=== PATIENT | male | born 1940 | race Caucasian/White ===

== ENCOUNTER 2017-12-01 22:06 | Inpatient (IN) | payer MEDICARE, MEDICAID ==
--- NOTE | 2017-12-01 22:22 | ED Physician Chart ---
ED Chief Complaint/HPI - Patient Information Date Seen:: 12/01/17 Time Seen:: 22:16 Chief Complaint:: Blurry vision History of Present Illness:: 77 yo male who is a resident of independent living, was brought by caregiver to ER for further evaluation of possible giant cell arteritis due to decreased bilateral eye vision per slab worker. The slab worker also noticed left optic nerve edema. The slab worker recommended IV steroid treatment if elevated CRP, ESR and giant cell arteritis were confirmed. ED Review of Systems - Review of Systems General/Constitutional: No fever Skin: Skin lesions Head: No headache Eyes: Other (decreased b/l vision) ENT: Other (decreased hearing) Neck: No neck pain Cardio Vascular: No chest pain Pulmonary: No SOB GI: No nausea, No vomiting Musculoskeletal: No bone or joint pain ED Past Medical History - Past Medical History Past Medical History: DVT/PE, Other (alcoholic cirrhosis, chronic viral hepatitis C, ) Social History: Smoker, No Alcohol, No Drug Use Psychiatricy History: Depression, Dementia, Other (alcoholism, anxiety) Family Medical History - Family Member Mother History Unknown: Yes ED Physical Exam - Physical Examination General/Constitutional: Awake, Alert Head: Atraumatic Eyes: PERRL Other Skin comments:: diffused itchy rashes ENMT: Nasal exam nl Neck: No nuchal rigidity Respiratory: Clear to Auscultation Cardio Vascular: RRR, No murmur, gallop, rubs, NL S1 S2 GI: No tenderness/rebounding/guarding Extremities: normal strength in all extremities Neuro/Psych: No focal deficits ED Assessment - Assessment General Assessment: Decreased bilateral vision To rule out giant cell arteritis Assessment/Comments:: CBC, CMP, CRP, ESR Solu-Medrol Bilateral carotid u/s ED Septic Shock - . Is Septic Shock (SBP<90, OR Lactate>4 mmol\L) present?: No ED Reassessment (Disposition) - Reassessment Reassessment Condition:: Unchanged - Patient Disposition Discharge/Transfer:: Acute Care w/in this hosp Admitting Medical Physician:: Breanne Guillory
[2017-12-01 23:08] LABS: % BASOPHILS 0.7 % (0.0-2.0); % EOSINOPHILS 4.9 % (0.0-5.0); % LYMPHOCYTES 29.5 % (20.0-50.0); % MONOCYTES 6.2 % (2.0-10.0); % NEUTROPHILS 58.7 % (40.0-80.0); BASOPHILE ABSOLUTE 0.1 Th/cumm (0-0.2); EOSINOPHILE ABSOLUTE 0.5 Th/cmm (0.1-0.4); HEMATOCRIT 46.8 % (41.0-60); HEMOGLOBIN 15.7 gm/dL (12-16); LYMPHOCYTE ABSOLUTE 2.8 Th/cmm (1.5-3.0); MEAN CELL VOLUME 90.3 fl (80-99); MEAN CORPUSCULAR HEMOGLOBIN 30.2 pg (27.0-31.0); MEAN CORPUSCULAR HGB CONC 33.4 pg (28.0-36.0); MEAN PLATELET VOLUME 8.8 fl; MONOCYTE ABSOLUTE 0.6 Th/cmm (0.3-1.0); NEUTROPHILE ABSOLUTE 5.4 Th/cmm (1.8-8.0); PLATELET COUNT 179 Th/cmm (150-400); RED BLOOD COUNT 5.18 Mil/cmm (3.80-5.80); RED CELL DISTRIBUTION WIDTH 14.2 % (11.5-20.0); WHITE BLOOD COUNT 9.4 Th/cmm (4.8-10.8)
[2017-12-01 23:30] LABS: ALB/GLOB RATIO 1.6 (1.0-1.8); ALBUMIN 4.6 gm/dL (4.2-5.5); ALKALINE PHOSPHATASE 99 U/L (34-104); ANION GAP 11.1 (7.0-16.0); BILIRUBIN,TOTAL 0.4 mg/dL (0.3-1.0); BUN - UREA NITROGEN 15 mg/dL (7-25); CALCIUM SERUM 9.6 mg/dL (8.6-10.3); CARBON DIOXIDE 25.7 mEq/L (21.0-31.0); CHLORIDE 105 mEq/L (98-107); GLUCOSE 91 mg/dL (70-105); POTASSIUM SERUM 3.8 mEq/L (3.5-5.1); SGOT 17 U/L (13-39); SGPT/ALT 11 U/L (7-52); SODIUM SERUM 138 mEq/L (136-145); TOTAL PROTEIN,SERUM 7.5 gm/dL (6.0-8.3)
[2017-12-01 23:36] LABS: ESR SEDIMENTATION SED RATE 16 mm/hr (0-20)
--- NOTE | 2017-12-02 17:17 | History & Physical ---
ADMIT DATE: CHIEF COMPLAINT: Visual change in left eye. HISTORY OF PRESENT ILLNESS: A 77-year-old male presents after his Brand Activation Manager recommended that he be evaluated for possible need for IV steroids. The patient had an ultrasound, which showed decreased patency of his left temporal artery. He was given steroids and now being admitted for further evaluation and care. The patient is seen in the Emergency Room, is awake and alert, confused and poor historian, but able to make needs known and give some history. The patient apparently sustained a stroke sometime ago and has trouble expressing himself. He gets frustrated when he cannot find the word that he is trying to say. According to the patient, he was having visual disturbance for a couple of months. He went to see his tea taster yesterday who recommended he come to the hospital because of suspicion of temporal arteritis. In the Emergency Room, the patient had ultrasound of his temples as well as his carotids, which showed arthrosclerotic changes as well as possible temporal arteritis stenosis. Possible decreased patency of his temporal arteritis. He was given intramuscular steroids. According to the patient, he has felt much better since he has been in the hospital, has mild headache, but cannot localize it. Denies temporal pain. Denies pain in his eyes. Denies any chest pain or shortness of breath. PAST MEDICAL HISTORY: The patient has history of CVA. Apparently he had craniotomy. He is on seizure medications: Also antidepressants and Benadryl for chronic itchiness. MEDICATIONS: The patient takes Keppra, Lexapro, and Benadryl. ALLERGIES: No known drug allergies. SOCIAL HISTORY: The patient smokes half a pack of cigarettes per day. Denies alcohol or illicit drug use. The patient lives in an assisted living facility. FAMILY HISTORY: Noncontributory. REVIEW OF SYSTEMS: IMMUNOLOGIC: No recurrent infection. CARDIOVASCULAR: No known heart disease or hypertension. GASTROINTESTINAL: No nausea, vomiting or diarrhea. ENDOCRINE: No diabetes or thyroid disorder. NEUROLOGIC: The patient has stroke and seizure. HEMATOLOGIC: No bleeding or clotting disorder. PHYSICAL EXAMINATION: GENERAL: The patient is awake and alert, in no acute distress. VITAL SIGNS: Temperature 98.0, pulse is 73, respiration is 16, blood pressure 129/76. HEENT: Pupils equally round, anicteric sclerae. NECK: Supple, no JVD, mass or bruit. LUNGS: Clear to auscultation. CARDIOVASCULAR: S1, S2 regular rate and rhythm. ABDOMEN: Soft, nontender. Positive bowel sounds. EXTREMITIES: No clubbing, cyanosis or edema. NEUROLOGIC: The patient has vision in both eyes, able to distinguish shapes and letters, able to move all extremities equally. No lateralizing signs. The patient's mental status appears somewhat confused and forgetful, but able to carry a conversation. The patient is also very hard of hearing, which is chronic. LABORATORY DATA: Chemistry is unremarkable. C-reactive protein is slightly elevated at 1.0. CBC is unremarkable. IMPRESSION: 1. Possible left temporal arteritis. 2. Poor vision. 3. Cerebrovascular accident. 4. Seizure disorder. 5. Chronic pruritus. 6. History of depression. PLAN: Admitted to medical floor. We will continue steroids and request Vascular Surgery consult with Dr. Dupree. We will continue patient's usual medications. JOB# [id number]
[2017-12-02] MEDS: methylPREDNISolone SS 40 mg Vial IVP SCH ×2 (17:38→21:59)
[2017-12-02] MEDS ORDERED: D5W w/20 mEq KCL 1,000 ML IV SCH (20:56)
[2017-12-02] MEDS: Aspirin 81mg Chewable Tab PO SCH (21:59)
[2017-12-03] MEDS: methylPREDNISolone SS 40 mg Vial IVP SCH ×3 (05:58→21:22)
[2017-12-03 06:24] LABS: HEMOGLOBIN 13.3 gm/dL (12-16); MEAN CELL VOLUME 90.7 fl (80-99); MEAN CORPUSCULAR HEMOGLOBIN 30.3 pg (27.0-31.0); MEAN CORPUSCULAR HGB CONC 33.4 pg (28.0-36.0); MEAN PLATELET VOLUME 8.8 fl; RED BLOOD COUNT 4.39 Mil/cmm (3.80-5.80); RED CELL DISTRIBUTION WIDTH 14.3 % (11.5-20.0)
[2017-12-03 06:27] LABS: HEMATOCRIT 39.8 % (41.0-60); WHITE BLOOD COUNT 11.9 Th/cmm (4.8-10.8)
[2017-12-03 06:28] LABS: PLATELET COUNT 143 Th/cmm (150-400)
[2017-12-03 07:27] LABS: ALB/GLOB RATIO 1.7 (1.0-1.8); ALBUMIN 3.8 gm/dL (4.2-5.5); ALKALINE PHOSPHATASE 76 U/L (34-104); BILIRUBIN,TOTAL 0.5 mg/dL (0.3-1.0); BUN - UREA NITROGEN 31 mg/dL (7-25); CHLORIDE 106 mEq/L (98-107); CREATININE - SERUM 1.1 mg/dL (0.7-1.3); GLUCOSE 229 mg/dL (70-105); POTASSIUM SERUM 4.2 mEq/L (3.5-5.1); SGOT 13 U/L (13-39); SGPT/ALT 9 U/L (7-52); SODIUM SERUM 136 mEq/L (136-145); TOTAL PROTEIN,SERUM 6.1 gm/dL (6.0-8.3)
[2017-12-03 08:13] LABS: ANION GAP 12.8 (7.0-16.0); CARBON DIOXIDE 21.4 mEq/L (21.0-31.0)
[2017-12-03 08:32] LABS: LYMPHOCYTE 12 % (20-50); MONOCYTE 2 % (2-10); NEUTROPHILS 86 % (40-80); PLATELET ESTIMATE ADEQUATE (NORMAL); TOTAL CELLS COUNTED 100
[2017-12-03] MEDS: Aspirin 81mg Chewable Tab PO SCH (09:19)
--- NOTE | 2017-12-03 10:58 | Diagnostic Imaging Report ---
Exam: Ultrasound examination of the extracranial carotid circulation HISTORY: CVA Findings: Real-time ultrasound examination of the extracranial carotid circulation was performed in multiple planes utilizing color Doppler technique. The study demonstrates atherosclerotic approximation consistent with an calcified plaque arising through the common carotid arteries into the origin internal and external carotid arteries bilaterally without significant stenosis or alteration of flow. Some intimal thickening is noted carotid bilaterally. Antegrade flow is noted the vertebral circulation bilaterally Right internal carotid artery ratio 1.6 Left internal carotid artery ratio 1.6. IMPRESSION No significant stenosis or alteration of flow. Atherosclerotic plaque formation in the origin internal and external carotid arteries with bilateral subintimal calcification and thickening of the cord bulbs bilaterally.
--- NOTE | 2017-12-03 13:57 | General Progress Note ---
Subjective - Review of Systems Service Date: 12/03/17 Subjective: denies change in vision denies SIMMONS c/o anxiety, irritable Objective - Results Result Diagrams: 12/03/17 06:05 12/03/17 06:05 Recent Labs: Laboratory Last Values WBC 11.9 Th/cmm (4.8-10.8) H D 12/03/17 06:05 RBC 4.39 Mil/cmm (3.80-5.80) 12/03/17 06:05 Hgb 13.3 gm/dL (12-16) 12/03/17 06:05 Hct 39.8 % (41.0-60) L D 12/03/17 06:05 MCV 90.7 fl (80-99) 12/03/17 06:05 MCH 30.3 pg (27.0-31.0) 12/03/17 06:05 MCHC Differential 33.4 pg (28.0-36.0) 12/03/17 06:05 RDW 14.3 % (11.5-20.0) 12/03/17 06:05 Plt Count 143 Th/cmm (150-400) L D 12/03/17 06:05 MPV 8.8 fl 12/03/17 06:05 Neutrophils % 58.7 % (40.0-80.0) 12/01/17 22:58 Lymphocytes % 29.5 % (20.0-50.0) 12/01/17 22:58 Monocytes % 6.2 % (2.0-10.0) 12/01/17 22:58 Eosinophils % 4.9 % (0.0-5.0) 12/01/17 22:58 Basophils % 0.7 % (0.0-2.0) 12/01/17 22:58 Neutrophils (Manual) 86 % (40-80) H 12/03/17 06:05 Lymphocytes 12 % (20-50) L 12/03/17 06:05 Monocytes 2 % (2-10) 12/03/17 06:05 Platelet Estimate ADEQUATE (NORMAL) 12/03/17 06:05 ESR 16 mm/hr (0-20) 12/01/17 22:58 Sodium 136 mEq/L (136-145) 12/03/17 06:05 Potassium 4.2 mEq/L (3.5-5.1) 12/03/17 06:05 Chloride 106 mEq/L (98-107) 12/03/17 06:05 Carbon Dioxide 21.4 mEq/L (21.0-31.0) 12/03/17 06:05 Anion Gap 12.8 (7.0-16.0) 12/03/17 06:05 BUN 31 mg/dL (7-25) H 12/03/17 06:05 Creatinine 1.1 mg/dL (0.7-1.3) 12/03/17 06:05 Est GFR ( Amer) TNP 12/03/17 06:05 Est GFR (Non-Af Amer) TNP 12/03/17 06:05 BUN/Creatinine Ratio 28.2 12/03/17 06:05 Glucose 229 mg/dL (70-105) H 12/03/17 06:05 Calcium 9.0 mg/dL (8.6-10.3) 12/03/17 06:05 Total Bilirubin 0.5 mg/dL (0.3-1.0) 12/03/17 06:05 AST 13 U/L (13-39) 12/03/17 06:05 ALT 9 U/L (7-52) 12/03/17 06:05 Alkaline Phosphatase 76 U/L (34-104) 12/03/17 06:05 C-Reactive Protein 1.0 mg/dL (0.0-0.9) H 12/01/17 22:58 Total Protein 6.1 gm/dL (6.0-8.3) 12/03/17 06:05 Albumin 3.8 gm/dL (4.2-5.5) L 12/03/17 06:05 Globulin 2.3 gm/dL 12/03/17 06:05 Albumin/Globulin Ratio 1.7 (1.0-1.8) 12/03/17 06:05 - Physical Exam Vitals and I&O: Vital Signs Temp 97.6 F 12/03/17 08:12 Pulse 86 12/03/17 08:12 Resp 18 12/03/17 08:12 BP 145/77 12/03/17 08:12 Pulse Ox 92 12/03/17 08:12 Intake & Output 12/02/17 12/03/17 12/03/17 18:59 06:59 18:59 Other: Stool Characteristics Soft Formed Brown Active Medications: Current Medications Alprazolam (Xanax) 0.25 mg PO Q8HR PRN; Protocol PRN Reason: Agitation Stop: 02/01/18 13:36 Aspirin (Aspirin Chewable) 81 mg PO DAILY [facility] Stop: 01/31/18 20:55 Last Admin: 12/03/17 09:19 Dose: 81 mg Diphenhydramine HCl (Benadryl) 25 mg PO TID PRN PRN Reason: Itching Stop: 01/31/18 16:31 Last Admin: 12/02/17 21:58 Dose: 25 mg Escitalopram Oxalate (Lexapro) 5 mg PO DAILY [facility] PRN Reason: Protocol Stop: 02/01/18 08:59 Levetiracetam (Keppra) 500 mg PO BID [facility] Stop: 01/31/18 16:59 Last Admin: 12/03/17 09:19 Dose: 500 mg Methylprednisolone Sodium Succinate (Solu-Medrol) 60 mg IVP Q8HR [facility] Stop: 01/31/18 16:44 Last Admin: 12/03/17 12:43 Dose: 60 mg General: No acute distress HEENT: Atraumatic, PERRLA Neck: Supple, JVD Cardiovascular: Regular rate, Normal S1, Normal S2 Lungs: Clear to auscultation Abdomen: Bowel sounds, Soft Assessment/Plan - Assessment Assessment: Temporal Arteritis CVA Seizure D/O - Plan Plan: psych consult xanax prn cont steroids
[2017-12-03 15:02] LABS: URINE MICROSCOPIC INDICATED? YES; URINE SOURCE MIDSTREAM
[2017-12-03 15:04] LABS: URINE BILIRUBIN NEGATIVE (NEGATIVE); URINE BLOOD NEGATIVE (NEGATIVE); URINE GLUCOSE (UA) >=1000 mg/dL (NEGATIVE); URINE KETONE NEGATIVE (NEGATIVE); URINE LEUKOCYTE ESTERASE NEGATIVE (NEGATIVE); URINE NITRATE NEGATIVE (NEGATIVE); URINE PH 5.5 (4.6 - 8.0); URINE PROTEIN NEGATIVE (NEGATIVE); URINE UROBILINOGEN 0.2 E.U./dL (0.2 - 1.0)
[2017-12-03 15:05] LABS: URINE CLARITY CLEAR (CLEAR); URINE COLOR YELLOW
[2017-12-03 15:11] LABS: URINE BACTERIA NONE SEEN /hpf (NONE SEEN); URINE EPITHELIAL CELLS NONE SEEN /lpf (FEW); URINE RBC NONE SEEN /hpf (0-5); URINE WBC NONE SEEN /hpf (0-5)
[2017-12-03 18:15] LABS: A1C % 5.9 % (4.0-6.0)
[2017-12-03 19:26] LABS: INR 0.96 (0.5-1.4)
[2017-12-04] MEDS: methylPREDNISolone SS 40 mg Vial IVP SCH (05:45)
[2017-12-04 05:56] LABS: ANION GAP 10.5 (7.0-16.0); BUN - UREA NITROGEN 33 mg/dL (7-25); CALCIUM SERUM 8.7 mg/dL (8.6-10.3); CARBON DIOXIDE 25.9 mEq/L (21.0-31.0); CHLORIDE 106 mEq/L (98-107); GLUCOSE 246 mg/dL (70-105); POTASSIUM SERUM 4.4 mEq/L (3.5-5.1); SODIUM SERUM 138 mEq/L (136-145)
[2017-12-04 07:16] LABS: HEMATOCRIT 39.5 % (41.0-60); HEMOGLOBIN 13.4 gm/dL (12-16); MEAN CELL VOLUME 90.6 fl (80-99); RED BLOOD COUNT 4.37 Mil/cmm (3.80-5.80); WHITE BLOOD COUNT 14.3 Th/cmm (4.8-10.8)
[2017-12-04 07:17] LABS: MEAN CORPUSCULAR HEMOGLOBIN 30.7 pg (27.0-31.0); MEAN CORPUSCULAR HGB CONC 33.9 pg (28.0-36.0); MEAN PLATELET VOLUME 9.2 fl; NEUTROPHILS 88 % (40-80); PLATELET COUNT 154 Th/cmm (150-400); RED CELL DISTRIBUTION WIDTH 14.3 % (11.5-20.0)
[2017-12-04 07:18] LABS: BAND NEUTROPHILE 4 % (0-10); LYMPHOCYTE 6 % (20-50); MONOCYTE 2 % (2-10)
--- NOTE | 2017-12-04 07:49 | Diagnostic Imaging Report ---
CHEST X-RAY: AP view INDICATION: Surgery COMPARISON: None FINDINGS: Chronic lung changes are seen with mild increased bibasilar lung markings. No focal consolidation or effusions. Heart size is normal. Degenerative changes of the spine are noted. Postsurgical changes of upper abdomen are noted. IVC filter is noted. IMPRESSION: Chronic lung changes with increased bibasilar lung markings also likely chronic. No focal consolidation is identified.
[2017-12-04] MEDS: Aspirin 81mg Chewable Tab PO SCH (08:14)
--- NOTE | 2017-12-04 13:49 | Diagnostic Imaging Report ---
CT angiogram of the brain with and without intravenous contrast HISTORY: Blurred vision, headache Total DLP equals 1442 CTDI equals 81.0 Axial sections were obtained from the base of the skull to the vertex. Initial precontrast images were obtained. Subsequent postcontrast images are provided. However, there is no significant opacification of the intracerebral vasculature due to extravasation of contrast. Noncontrast images demonstrate extensive surgical changes about the left temporal region with craniotomy defects. Surgical clip noted within the anterior portion of the left middle cranial fossa. Associated artifact limits evaluation of the adjacent tissues. However, there is extensive encephalomalacia with volume loss presumably related to surgical sequelae. Extensive artifact originates from a metallic density situated over the right occipital region of the skull. Again, this limits evaluation. There is generalized enlargement of the ventricular system along with generalized enlargement of cerebral sulci and subarachnoid cisterns reflecting atrophy. There is pronounced hypodensity throughout the supratentorial and periventricular white matter regions without mass effect. The findings may reflect chronic small vessel ischemic disease. No acute intracerebral hemorrhage. No mass effect or shift of midline structures. No extra-axial masses or abnormal fluid collections. IMPRESSION: 1. Nondiagnostic assessment of the intracerebral vasculature due to extravasation of contrast. 2. Extensive surgical changes along with extensive encephalomalacia throughout the left temporal region. Associated artifact related to a surgical clip within the anterior portion of the left middle cranial fossa and a metallic density over the right occipital region limits evaluation of the brain parenchyma. 3. No acute intracerebral abnormalities 4. Generalized cerebral atrophy 5. Extensive supratentorial periventricular and white matter changes. The findings may be associated with chronic small vessel ischemic disease. If possible comparison with prior cerebral imaging studies would be helpful.
[2017-12-04] MEDS ORDERED: IOHEXOL 350mgI/mL 50mL Bottle IVP ONE (15:45)
[2017-12-04] MEDS ORDERED: IOHEXOL 350mgI/mL 100mL Bottle IVP ONE (15:45)
[2017-12-04] MEDS ORDERED: fentaNYL Citrate 100 mcg/2mL Vial ONE (17:08)
[2017-12-04] MEDS ORDERED: Midazolam 1mg/ml 2 ml vial IV ONE (17:09)
--- NOTE | 2017-12-04 19:20 | Consultation ---
DATE OF CONSULTATION: 12/03/2017 REFERRING PHYSICIAN: Breanne Guillory M.D. REASON FOR CONSULTATION: Visual change in left eye. Thank you for referring this patient to me. HISTORY OF PRESENT ILLNESS: This is a 77-year-old male who has been having visual deficit in the left eye for some time. He is a previous stroke patient. He has no family. He is a very poor historian, but apparently following a call to the nurse who was responsible for his care. He is able to sign his own consent. PHYSICAL EXAMINATION: The patient is awake, seems to be alert, but unable to give meaningful information. He smokes about half pack a day. Examination is otherwise unremarkable of the head and neck area. A CT of the head has been done and this shows a nondiagnostic intracerebral vasculature with extensive surgical changes from previous secondary to encephalomalacia with generalized cerebral atrophy. Ultrasound of the carotid vessels did not show any significant hemodynamic stenosis. PLAN: We will do a temporal artery biopsy per request of the attending physicians. JOB# [id number]
--- NOTE | 2017-12-04 21:56 | Operative Report ---
DATE OF SURGERY: 12/04/2017 PREOPERATIVE DIAGNOSES: 1. Temporal arteritis. 2. Status post cerebrovascular accident and craniotomy. 3. Seizure disorder. POSTOPERATIVE DIAGNOSES: 1. Temporal arteritis. 2. Status post cerebrovascular accident and craniotomy. 3. Seizure disorder. OPERATION DONE: Left temporal artery biopsy. SURGEON: Kadeem Dupree M.D. ANESTHESIA: MAC. ANESTHESIOLOGIST: Jacey ESTIMATED BLOOD LOSS: 2 mL. PROCEDURE: The patient was given IV sedation. The left temporal area was prepped with Betadine and draped in appropriate manner. The palpable temporal artery was identified. Once lidocaine was used to infiltrate, the area identified. An incision was made along the orientation of the vessel and the vessel was easily identified. A 3 mm section was removed for histologic examination. Bleeders were tied and electrocoagulated. The incision was closed with a subcuticular suture of 3-0 Vicryl and the skin was closed with subcuticular suture of 4-0 Vicryl. Dermabond was placed over this. The patient tolerated the procedure well. JOB# [id number]
--- NOTE | 2017-12-05 00:05 | Internal Medicine Prog Note ---
Internal Medicine Subjective - Subjective Service Date: 12/04/17 Patient seen and examined:: with staff Patient is:: awake, verbal, in bed, talking Per staff patient has:: no adverse event Internal Medicine Objective - Results Result Diagrams: 12/04/17 05:10 12/04/17 05:10 Recent Labs: Laboratory Last Values WBC 14.3 Th/cmm (4.8-10.8) H D 12/04/17 05:10 RBC 4.37 Mil/cmm (3.80-5.80) 12/04/17 05:10 Hgb 13.4 gm/dL (12-16) 12/04/17 05:10 Hct 39.5 % (41.0-60) L 12/04/17 05:10 MCV 90.6 fl (80-99) 12/04/17 05:10 MCH 30.7 pg (27.0-31.0) 12/04/17 05:10 MCHC Differential 33.9 pg (28.0-36.0) 12/04/17 05:10 RDW 14.3 % (11.5-20.0) 12/04/17 05:10 Plt Count 154 Th/cmm (150-400) 12/04/17 05:10 MPV 9.2 fl 12/04/17 05:10 Neutrophils % 58.7 % (40.0-80.0) 12/01/17 22:58 Band Neutrophils % 4 % (0-10) 12/04/17 05:10 Lymphocytes % 29.5 % (20.0-50.0) 12/01/17 22:58 Monocytes % 6.2 % (2.0-10.0) 12/01/17 22:58 Eosinophils % 4.9 % (0.0-5.0) 12/01/17 22:58 Basophils % 0.7 % (0.0-2.0) 12/01/17 22:58 Neutrophils (Manual) 88 % (40-80) H 12/04/17 05:10 Lymphocytes 6 % (20-50) L 12/04/17 05:10 Monocytes 2 % (2-10) 12/04/17 05:10 Platelet Estimate ADEQUATE (NORMAL) 12/03/17 06:05 ESR 16 mm/hr (0-20) 12/01/17 22:58 PT 10.0 SECONDS (9.5-11.5) 12/03/17 19:07 INR 0.96 (0.5-1.4) 12/03/17 19:07 PTT (Actin FS) 24.3 SECONDS (26.0-38.0) L 12/03/17 19:07 Sodium 138 mEq/L (136-145) 12/04/17 05:10 Potassium 4.4 mEq/L (3.5-5.1) 12/04/17 05:10 Chloride 106 mEq/L (98-107) 12/04/17 05:10 Carbon Dioxide 25.9 mEq/L (21.0-31.0) 12/04/17 05:10 Anion Gap 10.5 (7.0-16.0) 12/04/17 05:10 BUN 33 mg/dL (7-25) H 12/04/17 05:10 Creatinine 1.0 mg/dL (0.7-1.3) 12/04/17 05:10 Est GFR ( Amer) TNP 12/04/17 05:10 Est GFR (Non-Af Amer) TNP 12/04/17 05:10 BUN/Creatinine Ratio 33.0 12/04/17 05:10 Glucose 246 mg/dL (70-105) H 12/04/17 05:10 Hemoglobin A1c % 5.9 % (4.0-6.0) 12/03/17 06:05 Calcium 8.7 mg/dL (8.6-10.3) 12/04/17 05:10 Total Bilirubin 0.5 mg/dL (0.3-1.0) 12/03/17 06:05 AST 13 U/L (13-39) 12/03/17 06:05 ALT 9 U/L (7-52) 12/03/17 06:05 Alkaline Phosphatase 76 U/L (34-104) 12/03/17 06:05 C-Reactive Protein 1.0 mg/dL (0.0-0.9) H 12/01/17 22:58 Total Protein 6.1 gm/dL (6.0-8.3) 12/03/17 06:05 Albumin 3.8 gm/dL (4.2-5.5) L 12/03/17 06:05 Globulin 2.3 gm/dL 12/03/17 06:05 Albumin/Globulin Ratio 1.7 (1.0-1.8) 12/03/17 06:05 Urine Source MIDSTREAM 12/03/17 14:50 Urine Color YELLOW 12/03/17 14:50 Urine Clarity CLEAR (CLEAR) 12/03/17 14:50 Urine pH 5.5 (4.6 - 8.0) 12/03/17 14:50 Ur Specific [place] 1.020 (1.005-1.030) 12/03/17 14:50 Urine Protein NEGATIVE mg/dL (NEGATIVE) 12/03/17 14:50 Urine Glucose (UA) >=1000 mg/dL (NEGATIVE) H 12/03/17 14:50 Urine Ketones NEGATIVE mg/dL (NEGATIVE) 12/03/17 14:50 Urine Blood NEGATIVE (NEGATIVE) 12/03/17 14:50 Urine Nitrate NEGATIVE (NEGATIVE) 12/03/17 14:50 Urine Bilirubin NEGATIVE (NEGATIVE) 12/03/17 14:50 Urine Urobilinogen 0.2 E.U./dL (0.2 - 1.0) 12/03/17 14:50 Ur Leukocyte Esterase NEGATIVE (NEGATIVE) 12/03/17 14:50 Urine RBC NONE SEEN /hpf (0-5) 12/03/17 14:50 Urine WBC NONE SEEN /hpf (0-5) 12/03/17 14:50 Ur Epithelial Cells NONE SEEN /lpf (FEW) 12/03/17 14:50 Urine Bacteria NONE SEEN /hpf (NONE SEEN) 12/03/17 14:50 - Physical Exam Vitals and I&O: Vital Signs Temp 98.8 F 12/04/17 20:00 Pulse 74 12/04/17 20:00 Resp 20 12/04/17 20:00 BP 123/62 12/04/17 20:00 Pulse Ox 95 12/04/17 20:00 Intake & Output 12/04/17 12/04/17 12/05/17 06:59 18:59 06:59 Intake Total 300 0 Balance 300 0 Weight (lbs) 65.091 kg 65.091 kg Intake: Oral 300 0 Other: # Voids 2 3 # Bowel Movements 0 Stool Characteristics Soft Soft Formed Formed Brown Brown Active Medications: Current Medications Alprazolam (Xanax) 0.25 mg PO Q8HR PRN; Protocol PRN Reason: Agitation Stop: 02/01/18 13:36 Aspirin (Aspirin Chewable) 81 mg PO DAILY [facility] Stop: 01/31/18 20:55 Last Admin: 12/04/17 08:14 Dose: Not Given Diphenhydramine HCl (Benadryl) 25 mg PO TID PRN PRN Reason: Itching Stop: 01/31/18 16:31 Last Admin: 12/04/17 20:44 Dose: 25 mg Escitalopram Oxalate (Lexapro) 5 mg PO DAILY [facility] PRN Reason: Protocol Stop: 02/01/18 08:59 Levetiracetam (Keppra) 500 mg PO BID [facility] Stop: 01/31/18 16:59 Last Admin: 12/04/17 17:05 Dose: Not Given Methylprednisolone Sodium Succinate (Solu-Medrol) 60 mg IVP Q8HR [facility] Stop: 01/31/18 16:44 Last Admin: 12/04/17 20:45 Dose: 60 mg General: alert HEENT: NC/AT, PERRLA, EOMI, anicteric sclerae, throat clear Neck: Supple, No JVD, No thyromegaly, +2 carotid pulse wo bruit, No LAD, + JVD Lungs: CTAB Cardiovascular: RRR, Normal S1, Normal S2, without murmur Abdomen: non-tender, non-distended Extremities: clear Neurological: no change Internal Medicine Assmt/Plan - Assessment Assessment: 1.LEFT SIDE BLURING OF VISION. 2.POSSIBLE ACUTE ARTERITES OF LEFT SIDE AND SP BIOPSY. 3.HISTORY OF CVA. - Plan Plan: CONTINU ON CURRENT MEDICATION AND DIET.
[2017-12-05] MEDS: Aspirin 81mg Chewable Tab PO SCH (09:10)
[2017-12-05] MEDS ORDERED: Escitalopram Oxalate 5 mg Tab PO SCH (13:00)
--- NOTE | 2017-12-05 15:28 | Consultation ---
DATE OF CONSULTATION: 12/05/2017 AGE: 77. SEX: Male. PHYSICIAN: Dr. Guillory. BILL SORTER: Dr. Huggins. TYPE OF THE REPORT: Psychiatric consult. REASON FOR THE CONSULT: Depression. HISTORY OF PRESENT ILLNESS: The patient is a 77-year-old male who was admitted to the hospital because of the need of IV steroids secondary to eye problems. The patient diagnosed with temporal arteritis. He also has history of CVA. The patient has been depressed and has been having difficulty expressing himself. The patient also has been anxious. The patient since had CVA has been having that difficulty. Also, has seizure disorder. The patient still has difficulty expressing himself and slow response secondary to stroke. PAST PSYCHIATRIC HISTORY: The patient has history of depression and is on Lexapro 5 mg every day. PAST MEDICAL HISTORY: The patient has history of a stroke and has temporal arteritis. SOCIAL HISTORY: The patient lives with his . He is somehow poor historian and sometimes he lives in a jail. No known alcohol or street drug use. ALLERGIES: No known allergies. MENTAL STATUS EXAM: The patient appears slightly older than stated age. Skinny. Wears prescription glasses. Face is relatively red. The patient denies hallucinations, delusions or suicide or homicide. The patient is alert and oriented to situation and place. Immediate and recent memory are slightly impaired, but intact remote memory. Fair insight and judgment. ASSESSMENT: PRIMARY DIAGNOSIS: Major depression, severe, recurrent, without psychotic features. TREATMENT PLAN: We will continue Lexapro in a dose of 5 mg everyday and we will adjust the dose. Also, will provide individual psychotherapy as well as supportive therapy. Thanks to Dr. Guillory and we will follow up with you. JOB# [id number]
--- NOTE | 2017-12-05 16:39 | General Progress Note ---
Subjective - Review of Systems Service Date: 12/05/17 Events since last encounter: incision is clean Objective - Results Result Diagrams: 12/04/17 05:10 12/04/17 05:10 Recent Labs: Laboratory Last Values WBC 14.3 Th/cmm (4.8-10.8) H D 12/04/17 05:10 RBC 4.37 Mil/cmm (3.80-5.80) 12/04/17 05:10 Hgb 13.4 gm/dL (12-16) 12/04/17 05:10 Hct 39.5 % (41.0-60) L 12/04/17 05:10 MCV 90.6 fl (80-99) 12/04/17 05:10 MCH 30.7 pg (27.0-31.0) 12/04/17 05:10 MCHC Differential 33.9 pg (28.0-36.0) 12/04/17 05:10 RDW 14.3 % (11.5-20.0) 12/04/17 05:10 Plt Count 154 Th/cmm (150-400) 12/04/17 05:10 MPV 9.2 fl 12/04/17 05:10 Neutrophils % 58.7 % (40.0-80.0) 12/01/17 22:58 Band Neutrophils % 4 % (0-10) 12/04/17 05:10 Lymphocytes % 29.5 % (20.0-50.0) 12/01/17 22:58 Monocytes % 6.2 % (2.0-10.0) 12/01/17 22:58 Eosinophils % 4.9 % (0.0-5.0) 12/01/17 22:58 Basophils % 0.7 % (0.0-2.0) 12/01/17 22:58 Neutrophils (Manual) 88 % (40-80) H 12/04/17 05:10 Lymphocytes 6 % (20-50) L 12/04/17 05:10 Monocytes 2 % (2-10) 12/04/17 05:10 Platelet Estimate ADEQUATE (NORMAL) 12/03/17 06:05 ESR 16 mm/hr (0-20) 12/01/17 22:58 PT 10.0 SECONDS (9.5-11.5) 12/03/17 19:07 INR 0.96 (0.5-1.4) 12/03/17 19:07 PTT (Actin FS) 24.3 SECONDS (26.0-38.0) L 12/03/17 19:07 Sodium 138 mEq/L (136-145) 12/04/17 05:10 Potassium 4.4 mEq/L (3.5-5.1) 12/04/17 05:10 Chloride 106 mEq/L (98-107) 12/04/17 05:10 Carbon Dioxide 25.9 mEq/L (21.0-31.0) 12/04/17 05:10 Anion Gap 10.5 (7.0-16.0) 12/04/17 05:10 BUN 33 mg/dL (7-25) H 12/04/17 05:10 Creatinine 1.0 mg/dL (0.7-1.3) 12/04/17 05:10 Est GFR ( Amer) TNP 12/04/17 05:10 Est GFR (Non-Af Amer) TNP 12/04/17 05:10 BUN/Creatinine Ratio 33.0 12/04/17 05:10 Glucose 246 mg/dL (70-105) H 12/04/17 05:10 Hemoglobin A1c % 5.9 % (4.0-6.0) 12/03/17 06:05 Calcium 8.7 mg/dL (8.6-10.3) 12/04/17 05:10 Total Bilirubin 0.5 mg/dL (0.3-1.0) 12/03/17 06:05 AST 13 U/L (13-39) 12/03/17 06:05 ALT 9 U/L (7-52) 12/03/17 06:05 Alkaline Phosphatase 76 U/L (34-104) 12/03/17 06:05 C-Reactive Protein 1.0 mg/dL (0.0-0.9) H 12/01/17 22:58 Total Protein 6.1 gm/dL (6.0-8.3) 12/03/17 06:05 Albumin 3.8 gm/dL (4.2-5.5) L 12/03/17 06:05 Globulin 2.3 gm/dL 12/03/17 06:05 Albumin/Globulin Ratio 1.7 (1.0-1.8) 12/03/17 06:05 Urine Source MIDSTREAM 12/03/17 14:50 Urine Color YELLOW 12/03/17 14:50 Urine Clarity CLEAR (CLEAR) 12/03/17 14:50 Urine pH 5.5 (4.6 - 8.0) 12/03/17 14:50 Ur Specific [place] 1.020 (1.005-1.030) 12/03/17 14:50 Urine Protein NEGATIVE mg/dL (NEGATIVE) 12/03/17 14:50 Urine Glucose (UA) >=1000 mg/dL (NEGATIVE) H 12/03/17 14:50 Urine Ketones NEGATIVE mg/dL (NEGATIVE) 12/03/17 14:50 Urine Blood NEGATIVE (NEGATIVE) 12/03/17 14:50 Urine Nitrate NEGATIVE (NEGATIVE) 12/03/17 14:50 Urine Bilirubin NEGATIVE (NEGATIVE) 12/03/17 14:50 Urine Urobilinogen 0.2 E.U./dL (0.2 - 1.0) 12/03/17 14:50 Ur Leukocyte Esterase NEGATIVE (NEGATIVE) 12/03/17 14:50 Urine RBC NONE SEEN /hpf (0-5) 12/03/17 14:50 Urine WBC NONE SEEN /hpf (0-5) 12/03/17 14:50 Ur Epithelial Cells NONE SEEN /lpf (FEW) 12/03/17 14:50 Urine Bacteria NONE SEEN /hpf (NONE SEEN) 12/03/17 14:50 Levetiracetam 12.7 ug/mL (10.0-40.0) 12/02/17 17:38 - Physical Exam Vitals and I&O: Vital Signs Temp 98.0 F 12/05/17 16:00 Pulse 71 12/05/17 16:00 Resp 18 12/05/17 16:00 BP 153/81 12/05/17 16:00 Pulse Ox 93 12/05/17 16:00 Intake & Output 12/04/17 12/05/17 12/05/17 18:59 06:59 18:59 Intake Total 0 400 Balance 0 400 Weight (lbs) 65.091 kg 64.864 kg Intake: Oral 0 400 Other: # Voids 3 3 # Bowel Movements 0 0 Stool Characteristics Soft Soft Formed Formed Brown Brown Active Medications: Current Medications Alprazolam (Xanax) 0.25 mg PO Q8HR PRN; Protocol PRN Reason: Agitation Stop: 02/03/18 12:22 Aspirin (Aspirin Chewable) 81 mg PO DAILY [facility] Stop: 01/31/18 20:55 Last Admin: 12/05/17 09:10 Dose: 81 mg Diphenhydramine HCl (Benadryl) 25 mg PO TID PRN PRN Reason: Itching Stop: 01/31/18 16:31 Last Admin: 12/04/17 20:44 Dose: 25 mg Escitalopram Oxalate (Lexapro) 5 mg PO DAILY [facility] PRN Reason: Protocol Stop: 02/03/18 12:59 Last Admin: 12/05/17 12:37 Dose: 5 mg Levetiracetam (Keppra) 500 mg PO BID [facility] Stop: 01/31/18 16:59 Last Admin: 12/05/17 09:10 Dose: 500 mg Methylprednisolone Sodium Succinate (Solu-Medrol) 60 mg IVP Q8HR [facility] Stop: 01/31/18 16:44 Last Admin: 12/05/17 12:37 Dose: 60 mg General: No acute distress HEENT: Atraumatic, PERRLA Neck: Supple, JVD Cardiovascular: Regular rate, Normal S1, Normal S2 Lungs: Clear to auscultation Abdomen: Bowel sounds, Soft - Procedures Procedures: Procedures Procedure Code Date EXCISION OF LEFT TEMPORAL ARTERY, OPEN APPROACH, DIAGNOSTIC [id number] 12/01/17 TEMPORAL ARTERY PROCEDURE 51601 12/01/17
--- NOTE | 2017-12-05 20:07 | Internal Medicine Prog Note ---
Internal Medicine Subjective - Subjective Service Date: 12/05/17 Patient seen and examined:: with staff (HE FEELS BETTER) Patient is:: awake, verbal, in bed, talking Per staff patient has:: no adverse event Internal Medicine Objective - Results Result Diagrams: 12/04/17 05:10 12/04/17 05:10 Recent Labs: Laboratory Last Values WBC 14.3 Th/cmm (4.8-10.8) H D 12/04/17 05:10 RBC 4.37 Mil/cmm (3.80-5.80) 12/04/17 05:10 Hgb 13.4 gm/dL (12-16) 12/04/17 05:10 Hct 39.5 % (41.0-60) L 12/04/17 05:10 MCV 90.6 fl (80-99) 12/04/17 05:10 MCH 30.7 pg (27.0-31.0) 12/04/17 05:10 MCHC Differential 33.9 pg (28.0-36.0) 12/04/17 05:10 RDW 14.3 % (11.5-20.0) 12/04/17 05:10 Plt Count 154 Th/cmm (150-400) 12/04/17 05:10 MPV 9.2 fl 12/04/17 05:10 Neutrophils % 58.7 % (40.0-80.0) 12/01/17 22:58 Band Neutrophils % 4 % (0-10) 12/04/17 05:10 Lymphocytes % 29.5 % (20.0-50.0) 12/01/17 22:58 Monocytes % 6.2 % (2.0-10.0) 12/01/17 22:58 Eosinophils % 4.9 % (0.0-5.0) 12/01/17 22:58 Basophils % 0.7 % (0.0-2.0) 12/01/17 22:58 Neutrophils (Manual) 88 % (40-80) H 12/04/17 05:10 Lymphocytes 6 % (20-50) L 12/04/17 05:10 Monocytes 2 % (2-10) 12/04/17 05:10 Platelet Estimate ADEQUATE (NORMAL) 12/03/17 06:05 ESR 16 mm/hr (0-20) 12/01/17 22:58 PT 10.0 SECONDS (9.5-11.5) 12/03/17 19:07 INR 0.96 (0.5-1.4) 12/03/17 19:07 PTT (Actin FS) 24.3 SECONDS (26.0-38.0) L 12/03/17 19:07 Sodium 138 mEq/L (136-145) 12/04/17 05:10 Potassium 4.4 mEq/L (3.5-5.1) 12/04/17 05:10 Chloride 106 mEq/L (98-107) 12/04/17 05:10 Carbon Dioxide 25.9 mEq/L (21.0-31.0) 12/04/17 05:10 Anion Gap 10.5 (7.0-16.0) 12/04/17 05:10 BUN 33 mg/dL (7-25) H 12/04/17 05:10 Creatinine 1.0 mg/dL (0.7-1.3) 12/04/17 05:10 Est GFR ( Amer) TNP 12/04/17 05:10 Est GFR (Non-Af Amer) TNP 12/04/17 05:10 BUN/Creatinine Ratio 33.0 12/04/17 05:10 Glucose 246 mg/dL (70-105) H 12/04/17 05:10 Hemoglobin A1c % 5.9 % (4.0-6.0) 12/03/17 06:05 Calcium 8.7 mg/dL (8.6-10.3) 12/04/17 05:10 Total Bilirubin 0.5 mg/dL (0.3-1.0) 12/03/17 06:05 AST 13 U/L (13-39) 12/03/17 06:05 ALT 9 U/L (7-52) 12/03/17 06:05 Alkaline Phosphatase 76 U/L (34-104) 12/03/17 06:05 C-Reactive Protein 1.0 mg/dL (0.0-0.9) H 12/01/17 22:58 Total Protein 6.1 gm/dL (6.0-8.3) 12/03/17 06:05 Albumin 3.8 gm/dL (4.2-5.5) L 12/03/17 06:05 Globulin 2.3 gm/dL 12/03/17 06:05 Albumin/Globulin Ratio 1.7 (1.0-1.8) 12/03/17 06:05 Urine Source MIDSTREAM 12/03/17 14:50 Urine Color YELLOW 12/03/17 14:50 Urine Clarity CLEAR (CLEAR) 12/03/17 14:50 Urine pH 5.5 (4.6 - 8.0) 12/03/17 14:50 Ur Specific [place] 1.020 (1.005-1.030) 12/03/17 14:50 Urine Protein NEGATIVE mg/dL (NEGATIVE) 12/03/17 14:50 Urine Glucose (UA) >=1000 mg/dL (NEGATIVE) H 12/03/17 14:50 Urine Ketones NEGATIVE mg/dL (NEGATIVE) 12/03/17 14:50 Urine Blood NEGATIVE (NEGATIVE) 12/03/17 14:50 Urine Nitrate NEGATIVE (NEGATIVE) 12/03/17 14:50 Urine Bilirubin NEGATIVE (NEGATIVE) 12/03/17 14:50 Urine Urobilinogen 0.2 E.U./dL (0.2 - 1.0) 12/03/17 14:50 Ur Leukocyte Esterase NEGATIVE (NEGATIVE) 12/03/17 14:50 Urine RBC NONE SEEN /hpf (0-5) 12/03/17 14:50 Urine WBC NONE SEEN /hpf (0-5) 12/03/17 14:50 Ur Epithelial Cells NONE SEEN /lpf (FEW) 12/03/17 14:50 Urine Bacteria NONE SEEN /hpf (NONE SEEN) 12/03/17 14:50 Levetiracetam 12.7 ug/mL (10.0-40.0) 12/02/17 17:38 - Physical Exam Vitals and I&O: Vital Signs Temp 98.0 F 12/05/17 16:00 Pulse 71 12/05/17 16:00 Resp 18 12/05/17 16:00 BP 153/81 12/05/17 16:00 Pulse Ox 93 12/05/17 16:00 Intake & Output 12/05/17 12/05/17 12/06/17 06:59 18:59 06:59 Intake Total 400 1080 Balance 400 1080 Weight (lbs) 64.864 kg 64.864 kg Intake: Oral 400 1080 Other: # Voids 3 5 # Bowel Movements 0 1 Stool Characteristics Soft Formed Brown Active Medications: Current Medications Alprazolam (Xanax) 0.25 mg PO Q8HR PRN; Protocol PRN Reason: Agitation Stop: 02/03/18 12:22 Aspirin (Aspirin Chewable) 81 mg PO DAILY [facility] Stop: 01/31/18 20:55 Last Admin: 12/05/17 09:10 Dose: 81 mg Diphenhydramine HCl (Benadryl) 25 mg PO TID PRN PRN Reason: Itching Stop: 01/31/18 16:31 Last Admin: 12/04/17 20:44 Dose: 25 mg Escitalopram Oxalate (Lexapro) 5 mg PO DAILY [facility] PRN Reason: Protocol Stop: 02/03/18 12:59 Last Admin: 12/05/17 12:37 Dose: 5 mg Levetiracetam (Keppra) 500 mg PO BID [facility] Stop: 01/31/18 16:59 Last Admin: 12/05/17 16:41 Dose: 500 mg Methylprednisolone Sodium Succinate (Solu-Medrol) 60 mg IVP Q8HR [facility] Stop: 01/31/18 16:44 Last Admin: 12/05/17 12:37 Dose: 60 mg General: alert HEENT: NC/AT, PERRLA, EOMI, anicteric sclerae, throat clear Neck: Supple, No JVD, No thyromegaly, +2 carotid pulse wo bruit, No LAD, + JVD Lungs: CTAB Cardiovascular: RRR, Normal S1, Normal S2, without murmur Abdomen: non-tender, non-distended Extremities: clear Neurological: no change - Procedures Procedures: Procedures Procedure Code Date EXCISION OF LEFT TEMPORAL ARTERY, OPEN APPROACH, DIAGNOSTIC [id number] 12/01/17 TEMPORAL ARTERY PROCEDURE 25735 12/01/17 Internal Medicine Assmt/Plan - Assessment Assessment: 1.LEFT SIDE BLURING OF VISION. 2.POSSIBLE ACUTE ARTERITES OF LEFT SIDE AND SP BIOPSY. 3.HISTORY OF CVA. - Plan Plan: CONTINU ON CURRENT MEDICATION AND DIET.
--- NOTE | 2017-12-06 07:47 | Progress Notes ---
DATE: 12/06/2017 PSYCHIATRIC PROGRESS NOTE SUBJECTIVE: Chart reviewed and the patient interviewed. I also discussed the patient's condition with the staff and reviewed records and labs. The patient still has difficulty expressing himself, which makes him anxious and makes him depressed. The patient also still seems to be in a depressed mood. He also is compliant with taking his medications. On the other hand, the patient is taking Lexapro and no side effects of Lexapro. ASSESSMENT: The patient is still severely anxious and depressed. TREATMENT PLAN: Continue to monitor his behavior and his condition closely. Also, we will increase Lexapro to 10 mg every day and continue to follow up. JOB# [id number]
[2017-12-06] MEDS: Aspirin 81mg Chewable Tab PO SCH (09:00)
--- NOTE | 2017-12-06 14:20 | Pathology Report ---
[id number] Collection Date: 12/04/2017 Surgeon: Dr. Oanh Dupree Specimen Description: Left temporal artery biopsy Gross Description: Received in formalin are two short segments of ling tubular structure measuring 0.2 and 0.3 cm in length with both portions having a diameter of 0.1 cm. Totally submitted in one cassette. Microscopic Description: The histologic sections show a small arterial vessel with complete cross-sections identified. The vessel wall shows no evidence for granulomatous inflammation, and there are no giant cells identified. Diagnosis: Cross-section of small artery showing no significant inflammation, left temporal artery biopsy. Comment: There is no evidence for temporal arteritis on this biopsy specimen. Clinical correlation and follow-up is recommended. [facility]# [id number] VLADISLAV
--- NOTE | 2017-12-06 20:57 | Internal Medicine Prog Note ---
Internal Medicine Subjective - Subjective Service Date: 12/06/17 Patient seen and examined:: with staff (HE FEELS BETTER.) Patient is:: awake, verbal, in bed, talking Per staff patient has:: no adverse event Internal Medicine Objective - Results Result Diagrams: 12/04/17 05:10 12/04/17 05:10 Recent Labs: Laboratory Last Values WBC 14.3 Th/cmm (4.8-10.8) H D 12/04/17 05:10 RBC 4.37 Mil/cmm (3.80-5.80) 12/04/17 05:10 Hgb 13.4 gm/dL (12-16) 12/04/17 05:10 Hct 39.5 % (41.0-60) L 12/04/17 05:10 MCV 90.6 fl (80-99) 12/04/17 05:10 MCH 30.7 pg (27.0-31.0) 12/04/17 05:10 MCHC Differential 33.9 pg (28.0-36.0) 12/04/17 05:10 RDW 14.3 % (11.5-20.0) 12/04/17 05:10 Plt Count 154 Th/cmm (150-400) 12/04/17 05:10 MPV 9.2 fl 12/04/17 05:10 Neutrophils % 58.7 % (40.0-80.0) 12/01/17 22:58 Band Neutrophils % 4 % (0-10) 12/04/17 05:10 Lymphocytes % 29.5 % (20.0-50.0) 12/01/17 22:58 Monocytes % 6.2 % (2.0-10.0) 12/01/17 22:58 Eosinophils % 4.9 % (0.0-5.0) 12/01/17 22:58 Basophils % 0.7 % (0.0-2.0) 12/01/17 22:58 Neutrophils (Manual) 88 % (40-80) H 12/04/17 05:10 Lymphocytes 6 % (20-50) L 12/04/17 05:10 Monocytes 2 % (2-10) 12/04/17 05:10 Platelet Estimate ADEQUATE (NORMAL) 12/03/17 06:05 ESR 16 mm/hr (0-20) 12/01/17 22:58 PT 10.0 SECONDS (9.5-11.5) 12/03/17 19:07 INR 0.96 (0.5-1.4) 12/03/17 19:07 PTT (Actin FS) 24.3 SECONDS (26.0-38.0) L 12/03/17 19:07 Sodium 138 mEq/L (136-145) 12/04/17 05:10 Potassium 4.4 mEq/L (3.5-5.1) 12/04/17 05:10 Chloride 106 mEq/L (98-107) 12/04/17 05:10 Carbon Dioxide 25.9 mEq/L (21.0-31.0) 12/04/17 05:10 Anion Gap 10.5 (7.0-16.0) 12/04/17 05:10 BUN 33 mg/dL (7-25) H 12/04/17 05:10 Creatinine 1.0 mg/dL (0.7-1.3) 12/04/17 05:10 Est GFR ( Amer) TNP 12/04/17 05:10 Est GFR (Non-Af Amer) TNP 12/04/17 05:10 BUN/Creatinine Ratio 33.0 12/04/17 05:10 Glucose 246 mg/dL (70-105) H 12/04/17 05:10 Hemoglobin A1c % 5.9 % (4.0-6.0) 12/03/17 06:05 Calcium 8.7 mg/dL (8.6-10.3) 12/04/17 05:10 Total Bilirubin 0.5 mg/dL (0.3-1.0) 12/03/17 06:05 AST 13 U/L (13-39) 12/03/17 06:05 ALT 9 U/L (7-52) 12/03/17 06:05 Alkaline Phosphatase 76 U/L (34-104) 12/03/17 06:05 C-Reactive Protein 1.0 mg/dL (0.0-0.9) H 12/01/17 22:58 Total Protein 6.1 gm/dL (6.0-8.3) 12/03/17 06:05 Albumin 3.8 gm/dL (4.2-5.5) L 12/03/17 06:05 Globulin 2.3 gm/dL 12/03/17 06:05 Albumin/Globulin Ratio 1.7 (1.0-1.8) 12/03/17 06:05 Urine Source MIDSTREAM 12/03/17 14:50 Urine Color YELLOW 12/03/17 14:50 Urine Clarity CLEAR (CLEAR) 12/03/17 14:50 Urine pH 5.5 (4.6 - 8.0) 12/03/17 14:50 Ur Specific [place] 1.020 (1.005-1.030) 12/03/17 14:50 Urine Protein NEGATIVE mg/dL (NEGATIVE) 12/03/17 14:50 Urine Glucose (UA) >=1000 mg/dL (NEGATIVE) H 12/03/17 14:50 Urine Ketones NEGATIVE mg/dL (NEGATIVE) 12/03/17 14:50 Urine Blood NEGATIVE (NEGATIVE) 12/03/17 14:50 Urine Nitrate NEGATIVE (NEGATIVE) 12/03/17 14:50 Urine Bilirubin NEGATIVE (NEGATIVE) 12/03/17 14:50 Urine Urobilinogen 0.2 E.U./dL (0.2 - 1.0) 12/03/17 14:50 Ur Leukocyte Esterase NEGATIVE (NEGATIVE) 12/03/17 14:50 Urine RBC NONE SEEN /hpf (0-5) 12/03/17 14:50 Urine WBC NONE SEEN /hpf (0-5) 12/03/17 14:50 Ur Epithelial Cells NONE SEEN /lpf (FEW) 12/03/17 14:50 Urine Bacteria NONE SEEN /hpf (NONE SEEN) 12/03/17 14:50 Levetiracetam 12.7 ug/mL (10.0-40.0) 12/02/17 17:38 - Physical Exam Vitals and I&O: Vital Signs Temp 97.7 F 12/06/17 17:29 Pulse 61 12/06/17 17:29 Resp 19 12/06/17 17:29 BP 117/71 12/06/17 17:29 Pulse Ox 93 12/06/17 16:00 Intake & Output 12/06/17 12/06/17 12/07/17 06:59 18:59 06:59 Intake Total 200 1200 Balance 200 1200 Weight (lbs) 64.864 kg 64.864 kg Intake: Oral 200 1200 Other: # Voids 4 5 # Bowel Movements 0 Stool Characteristics Soft Soft Formed Formed Brown Brown Active Medications: Current Medications Alprazolam (Xanax) 0.25 mg PO Q8HR PRN; Protocol PRN Reason: Agitation Stop: 02/03/18 12:22 Last Admin: 12/06/17 19:04 Dose: 0.25 mg Alprazolam (Xanax) 0.25 mg PO ONCE PRN; Protocol PRN Reason: Agitation Stop: 02/04/18 20:38 Aspirin (Aspirin Chewable) 81 mg PO DAILY [facility] Stop: 01/31/18 20:55 Last Admin: 12/06/17 09:00 Dose: 81 mg Diphenhydramine HCl (Benadryl) 25 mg PO TID PRN PRN Reason: Itching Stop: 01/31/18 16:31 Last Admin: 12/05/17 20:59 Dose: 25 mg Escitalopram Oxalate (Lexapro) 10 mg PO DAILY [facility] PRN Reason: Protocol Stop: 02/04/18 06:59 Last Admin: 12/06/17 09:00 Dose: 10 mg Levetiracetam (Keppra) 500 mg PO BID [facility] Stop: 01/31/18 16:59 Last Admin: 12/06/17 17:08 Dose: 500 mg Methylprednisolone Sodium Succinate (Solu-Medrol) 60 mg IVP Q8HR [facility] Stop: 01/31/18 16:44 Last Admin: 12/06/17 13:37 Dose: 60 mg General: alert HEENT: NC/AT, PERRLA, EOMI, anicteric sclerae, throat clear Neck: Supple, No JVD, No thyromegaly, +2 carotid pulse wo bruit, No LAD, + JVD Lungs: CTAB Cardiovascular: RRR, Normal S1, Normal S2, without murmur Abdomen: non-tender, non-distended Extremities: clear Neurological: no change - Procedures Procedures: Procedures Procedure Code Date EXCISION OF LEFT TEMPORAL ARTERY, OPEN APPROACH, DIAGNOSTIC [id number] 12/01/17 TEMPORAL ARTERY PROCEDURE [id number] 12/01/17 Internal Medicine Assmt/Plan - Assessment Assessment: 1.LEFT SIDE BLURING OF VISION. 2.POSSIBLE ACUTE ARTERITES OF LEFT SIDE AND SP BIOPSY. 3.HISTORY OF CVA. - Plan Plan: CONTINU ON CURRENT MEDICATION AND DIET.THE PRELIMINARY BIOPSY FOR LEFT TEMPORAL ARTERY IS NEGATIVE.[facility].
--- NOTE | 2017-12-21 21:23 | Discharge Summary ---
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 2. History of cerebrovascular accident. 3. Seizure disorder. 4. History of depression. REVIEW OF HISTORY: The patient is a 77-year-old male with long history of CVA, admitted to [facility] with blurring of vision of left side, temporal pain. The patient started on steroids. PHYSICAL EXAMINATION: VITAL SIGNS: Temperature 98, heart rate 73. CHEST: Clear to auscultation. ABDOMEN: Soft, bowel sounds positive. EXTREMITIES: No edema. COURSE OF HOSPITALIZATION: During his hospitalization, the patient was seen by Dr. Dupree, vascular surgeon and underwent biopsy of the left temporal artery. The patient tolerated the procedure well. On the 12/05/2017, the patient still has some pain and less blurring of vision. No chest pain, no shortness of breath. Chest clear to auscultation. Abdomen soft, bowel sounds positive. DISPOSITION: On 12/06/2017, the patient was stable clinically. The patient transferred to [facility] to continue his medication and diet. CONDITION ON DISCHARGE: Stable. MEDICATIONS: Follow discharge reconciliation. JOB# [id number]
== END 2017-12-06 21:30 | DRG 516 ==
LOC: ER 22:06 → ERII 23:29 → MSI 12-02 19:13 → TELE 12-02 20:30 → MSI 12-02 20:56
PROVIDERS: ADMIT Family Medicine; ATTEND Family Medicine
PROC: 03BT0ZX Excision of Left Temporal Artery, Open Approach, Diagnostic (ICD-10-PCS; principal; 2017-12-04)
DX: M31.6 Other giant cell arteritis (principal); F33.2 Major depressive disorder, recurrent severe without psychotic features; G93.89 Other specified disorders of brain; F03.90 Unspecified dementia, unspecified severity, without behavioral disturbance, psychotic disturbance, mood disturbance, and anxiety; G40.909 Epilepsy, unspecified, not intractable, without status epilepticus; B18.2 Chronic viral hepatitis C; F17.210 Nicotine dependence, cigarettes, uncomplicated; F41.9 Anxiety disorder, unspecified; L29.8 Other pruritus; K74.60 Unspecified cirrhosis of liver; G31.9 Degenerative disease of nervous system, unspecified; Z86.73 Personal history of transient ischemic attack (TIA), and cerebral infarction without residual deficits; Z86.718 Personal history of other venous thrombosis and embolism
CPT/HCPCS: 36415-UA; 71045-TC; 80048-TC; 80053-TC; 80299-90; 81001-TC; 83036-90; 85007-TC; 85025-TC; 85027-TC; 85610-TC; 85652-TC; 86141-TC; 88304-TC; 93005; 93880-TC; J2001; J2250; J2920; J2930; J3010; J3480; J7040; Q9967; Z7610

== ENCOUNTER 2018-05-27 22:14 | Inpatient (IN) | payer MEDICARE, MEDICAID ==
[2018-05-27 23:18] LABS: % BASOPHILS 0.9 % (0.0-2.0); % EOSINOPHILS 4.4 % (0.0-5.0); % LYMPHOCYTES 27.3 % (20.0-50.0); % MONOCYTES 7.8 % (2.0-10.0); % NEUTROPHILS 59.6 % (40.0-80.0); BASOPHILE ABSOLUTE 0.1 Th/cumm (0-0.2); EOSINOPHILE ABSOLUTE 0.3 Th/cmm (0.1-0.4); HEMATOCRIT 38.9 % (41.0-60); HEMOGLOBIN 13.3 gm/dL (12-16); MEAN CELL VOLUME 92.9 fl (80-99); MEAN CORPUSCULAR HEMOGLOBIN 31.8 pg (27.0-31.0); MEAN CORPUSCULAR HGB CONC 34.2 pg (28.0-36.0); MEAN PLATELET VOLUME 8.6 fl; MONOCYTE ABSOLUTE 0.6 Th/cmm (0.3-1.0); NEUTROPHILE ABSOLUTE 4.5 Th/cmm (1.8-8.0); PLATELET COUNT 146 Th/cmm (150-400); RED BLOOD COUNT 4.19 Mil/cmm (3.80-5.80); RED CELL DISTRIBUTION WIDTH 14.3 % (11.5-20.0); WHITE BLOOD COUNT 7.5 Th/cmm (4.8-10.8)
[2018-05-27 23:28] LABS: ALB/GLOB RATIO 1.9 (1.0-1.8); ALBUMIN 3.8 gm/dL (4.2-5.5); ALKALINE PHOSPHATASE 73 U/L (34-104); ANION GAP 9.7 (7.0-16.0); BILIRUBIN,TOTAL 0.3 mg/dL (0.3-1.0); BUN - UREA NITROGEN 23 mg/dL (7-25); CALCIUM SERUM 8.8 mg/dL (8.6-10.3); CARBON DIOXIDE 23.9 mEq/L (21.0-31.0); CHLORIDE 111 mEq/L (98-107); GLUCOSE 158 mg/dL (70-105); PHOSPHOROUS 2.7 mg/dL (2.5-5.0); POTASSIUM SERUM 3.6 mEq/L (3.5-5.1); SGOT 14 U/L (13-39); SGPT/ALT 11 U/L (7-52); SODIUM SERUM 141 mEq/L (136-145); TOTAL PROTEIN,SERUM 5.8 gm/dL (6.0-8.3)
--- NOTE | 2018-05-27 23:30 | ED Physician Chart ---
ED Chief Complaint/HPI - Patient Information Date Seen:: 05/27/18 Time Seen:: 22:15 Chief Complaint:: cough History of Present Illness:: cough with yellow sputum in a smoker Allergies:: Allergies Allergy/AdvReac Type Severity Reaction Status Date / Time No Known Allergies Allergy Verified 12/01/17 23:07 Vitals:: Vital Signs - 8 hr 05/27/18 22:15 Temp 98.0 F HR 93 RR 18 BP 135/61 O2 Sat % 97 ED Review of Systems - Review of Systems General/Constitutional: Weakness Skin: No skin lesions, No rash, No bruising Head: No headache, No light-headedness Eyes: No loss of vision, No pain, No diplopia ENT: No earache, No nasal drainage, No sore throat, No tinnitus Neck: No neck pain, No swelling, No thyromegaly, No stiffness, No mass noted Cardio Vascular: No chest pain, No palpitations, No PND, No orthopnea, No edema Pulmonary: Cough, Sputum GI: No nausea, No vomiting, No diarrhea, No pain, No melena, No hematochezia, No constipation, No hematemesis G/U: No dysuria, No frequency, No hematuria Musculoskeletal: No bone or joint pain, No back pain, No muscle pain Endocrine: No polyuria, No polydipsia Psychiatric: Prior psych history Hematopoietic: No bruising, No lymphadenopathy Allergic/Immuno: No urticaria, No angioedema Neurological: No syncope, No focal symptoms, No weakness, No paresthesia, No headache, No seizure, No dizziness, No confusion, No vertigo ED Past Medical History - Past Medical History Obtainable: Yes Past Medical History: Other (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 Skin: No rash, No skin lesions Other Skin comments:: poor skin turgor ENMT: External ears, nose nl, Nasal exam nl, Lips, teeth, gums nl Other ENMT comments:: dry mucous membranes. Neck: Nontender, Full ROM w/o pain, No JVD, No nuchal rigidity, No bruit, No mass, No stridor Other Neck comments:: Rhonchi right lower lung base. Other Respiratory comments:: no respiratory distress. RLL rhonchi. Cardio Vascular: RRR, No murmur, gallop, rubs, NL S1 S2 GI: No tenderness/rebounding/guarding, No organomegaly, No hernia, Normal BS's, Nondistended, No mass/bruits, No McBurney tenderness : No CVA tenderness Extremities: No tenderness or effusion, Full ROM, normal strength in all extremities, No edema, Normal digits & nails Neuro/Psych: Alert/oriented, Normal sensory exam, Normal motor strength, Judgement/insight normal, Mood normal, No focal deficits Misc: Normal back, No paraspinal tenderness ED Labs/Radiology/EKG Results - Lab Results Results: Laboratory Tests 05/27/18 23:00 WBC 7.5 RBC 4.19 Hgb 13.3 Hct 38.9 L MCV 92.9 MCH 31.8 H MCHC Differential 34.2 RDW 14.3 Plt Count 146 L MPV 8.6 Neutrophils % 59.6 Lymphocytes % 27.3 Monocytes % 7.8 Eosinophils % 4.4 Basophils % 0.9 ED Assessment - Assessment General Assessment: EKG from 11:39:47 p.m.: normal sinus rhythm, movement artifact. No ischemic changes. CXR: early right lower lobe infiltrate (per my reading) Assessment/Comments:: We started calling Dr. Dorsey at 12:22 a.m. I personally texted Dr. Dorsey at 12:32 a.m. He was called through his exchange on mutliple occasions and never answered us until 1:05 a.m. At that point, we were already talking to Dr. Valente about admitting this patient to his service even though Dr. Dorsey had told the patient to specifically come to the emergency room to be admitted to the hospital. Dr. Dorsey insisted that he received a single page 1 minute prior to calling us at 1:[address] Dorsey was very upset and yelled at me, Dr. Prather. He also hung up the phone on Geoffrey, the nurse in the ER. ED Septic Shock - . Is Septic Shock (SBP<90, OR Lactate>4 mmol\L) present?: No - <6hrs of presentation: Vital Signs: Vital Signs - 8 hr 05/27/18 22:15 Temp 98.0 F HR 93 RR 18 BP 135/61 O2 Sat % 97 ED Reassessment (Disposition) - Reassessment Reassessment Condition:: Improved - Diagnosis Diagnosis:: Pneumonia Dehydration - Patient Disposition Discharge/Transfer:: Acute Care w/in this hosp
[2018-05-27] MEDS ORDERED: cefTRIAXone 1 GM in Sodium Chloride 0.9% 50 ML IV ONE (23:31)
[2018-05-27] MEDS ORDERED: Lactated Ringer 1,000 ML IV ONE (23:33)
[2018-05-27] MEDS ORDERED: Azithromycin 500 MG in Sodium Chloride 0.9% 250 ML IV ONE (23:57)
[2018-05-28] MEDS ORDERED: D5-0.45NS w/20 mEq KCL 1,000 ML IV ONE (02:45)
[2018-05-28] MEDS: D5-0.45NS w/20 mEq KCL 1,000 ML IV SCH ×2 (02:53→16:22)
[2018-05-28 03:59] VITALS: BP 151/68
--- NOTE | 2018-05-28 07:32 | Diagnostic Imaging Report ---
Portable chest x-ray Time: 2305 History: Cough Allowing for portable technique the heart size is normal. No focal pulmonary parenchymal processes. No hilar or mediastinal abnormalities. Impression: No acute abnormalities.
[2018-05-28] MEDS: cefTRIAXone 1 GM in Sodium Chloride 0.9% 50 ML IV SCH (20:05)
[2018-05-28] MEDS: Azithromycin 500 MG in Sodium Chloride 0.9% 250 ML IV SCH (20:50)
[2018-05-28 21:00] LABS: URINE MICROSCOPIC INDICATED? YES; URINE SOURCE CLEAN C
[2018-05-28 21:03] LABS: URINE BILIRUBIN NEGATIVE (NEGATIVE); URINE BLOOD NEGATIVE (NEGATIVE); URINE GLUCOSE (UA) 100 mg/dL (NEGATIVE); URINE KETONE NEGATIVE (NEGATIVE); URINE LEUKOCYTE ESTERASE NEGATIVE (NEGATIVE); URINE NITRATE NEGATIVE (NEGATIVE); URINE PH 5.5 (4.6 - 8.0); URINE PROTEIN NEGATIVE (NEGATIVE); URINE UROBILINOGEN 0.2 E.U./dL (0.2 - 1.0)
[2018-05-28 21:40] LABS: URINE CLARITY CLEAR (CLEAR); URINE COLOR YELLOW
[2018-05-28 21:46] LABS: AMPHETAMINE URINE NEGATIVE (NEGATIVE); BARBITURATES URINE NEGATIVE (NEGATIVE); CANNABINOID THC NEGATIVE (NEGATIVE); COCAINE METABOLITE QUAL URINE NEGATIVE (NEGATIVE); METHADONE URINE NEGATIVE (NEGATIVE); METHAMPHETAMINES QUAL URINE NEGATIVE (NEGATIVE); OPIATES (MORPHINE) QUAL. URINE NEGATIVE (NEGATIVE); PHENCYCLIDINE (PCP) URINE NEGATIVE (NEGATIVE); TRICYCLICS (TCA) QUAL. URINE NEGATIVE (NEGATIVE)
[2018-05-28 21:47] LABS: BENZODIAZEPINES QUAL URINE POSITIVE (NEGATIVE); URINE BACTERIA OCCASIONAL /hpf (NONE SEEN); URINE EPITHELIAL CELLS OCCASIONAL /lpf (FEW); URINE RBC 0-2 /hpf (0-5); URINE WBC 0-2 /hpf (0-5)
--- NOTE | 2018-05-28 23:21 | History & Physical ---
ADMIT DATE: 05/28/2018 CHIEF COMPLAINT: Cough, shortness of breath of a few days' duration. HISTORY OF PRESENT ILLNESS: The patient is a 78-year-old male with long history of COPD, seizure disorder, and dementia; presented to the Emergency Room with cough and shortness of breath. Initial workup sent for pneumonia, admitted to the hospitalist, started IV fluid, antibiotic, breathing treatment. No chest pain, no nausea, no vomiting. PAST MEDICAL HISTORY: Significant for COPD, degenerative joint disease, dementia, and seizure disorder. PAST SURGICAL HISTORY: No recent surgery. ALLERGIES: None. MEDICATIONS: Follow admission reconciliation. SOCIAL HISTORY: Ex-smoker, no alcohol or drug problems. FAMILY HISTORY: Noncontributory. REVIEW OF SYSTEMS: IMMUNOSYSTEM: No history of chronic renal disorder. CARDIOVASCULAR SYSTEM: No coronary artery disease. ENDOCRINE SYSTEM: No diabetes or thyroid problem. GASTROINTESTINAL SYSTEM: ____ upper or lower GI bleed. NEUROLOGICAL SYSTEM: History of seizure disorder. MUSCULOSKELETAL SYSTEM: Degenerative joint disease. RESPIRATORY SYSTEM: COPD, pneumonia. PHYSICAL EXAMINATION: GENERAL: He is awake, not coherent. VITAL SIGNS: Temperature 97.2, heart rate 96, and blood pressure 142/73. HEENT: Normocephalic. Pupils reacting to light and accommodation. Sclerae are clear. NECK: Supple. Negative for lymphadenopathy, JVD, or bruit. CHEST: Entry of air bilateral diminished. HEART: S1, S2 normal. ABDOMEN: Soft, bowel sounds positive. EXTREMITIES: No edema. NEUROLOGIC: He is awake, alert, mildly confused. LABORATORY DATA: White blood 7.5, hemoglobin 13.3, hematocrit 38.9, and platelet 146. Sodium 141, potassium 3.6, BUN is 23, creatinine 1.0, and albumin 1.9. ASSESSMENT: 1. Pneumonia. 2. Chronic obstructive pulmonary disease. 3. Seizure disorder. 4. Dementia. 5. Severe malnutrition. PLAN: The patient in the hospital under Dr. Guillory's service. Start IV fluid, IV antibiotic, breathing treatment. The patient is a full code. JOB# [id number]
[2018-05-29] MEDS: D5-0.45NS w/20 mEq KCL 1,000 ML IV SCH (07:09)
[2018-05-29] MEDS: Aspirin 81mg Chewable Tab PO SCH (08:54)
--- NOTE | 2018-05-29 11:48 | Internal Medicine Prog Note ---
Internal Medicine Subjective - Subjective Service Date: 05/29/18 Patient seen and examined:: with staff Patient is:: awake, in bed, confused Per staff patient has:: no adverse event Internal Medicine Objective - Results Result Diagrams: 05/27/18 23:00 05/27/18 23:00 Recent Labs: Laboratory Last Values WBC 7.5 Th/cmm (4.8-10.8) 05/27/18 23:00 RBC 4.19 Mil/cmm (3.80-5.80) 05/27/18 23:00 Hgb 13.3 gm/dL (12-16) 05/27/18 23:00 Hct 38.9 % (41.0-60) L 05/27/18 23:00 MCV 92.9 fl (80-99) 05/27/18 23:00 MCH 31.8 pg (27.0-31.0) H 05/27/18 23:00 MCHC Differential 34.2 pg (28.0-36.0) 05/27/18 23:00 RDW 14.3 % (11.5-20.0) 05/27/18 23:00 Plt Count 146 Th/cmm (150-400) L 05/27/18 23:00 MPV 8.6 fl 05/27/18 23:00 Neutrophils % 59.6 % (40.0-80.0) 05/27/18 23:00 Lymphocytes % 27.3 % (20.0-50.0) 05/27/18 23:00 Monocytes % 7.8 % (2.0-10.0) 05/27/18 23:00 Eosinophils % 4.4 % (0.0-5.0) 05/27/18 23:00 Basophils % 0.9 % (0.0-2.0) 05/27/18 23:00 Sodium 141 mEq/L (136-145) 05/27/18 23:00 Potassium 3.6 mEq/L (3.5-5.1) 05/27/18 23:00 Chloride 111 mEq/L (98-107) H 05/27/18 23:00 Carbon Dioxide 23.9 mEq/L (21.0-31.0) 05/27/18 23:00 Anion Gap 9.7 (7.0-16.0) 05/27/18 23:00 BUN 23 mg/dL (7-25) 05/27/18 23:00 Creatinine 1.0 mg/dL (0.7-1.3) 05/27/18 23:00 Est GFR ( Amer) TNP 05/27/18 23:00 Est GFR (Non-Af Amer) TNP 05/27/18 23:00 BUN/Creatinine Ratio 23.0 05/27/18 23:00 Glucose 158 mg/dL (70-105) H 05/27/18 23:00 Whole Bld Lactic Acid 1.49 mmol/L (0.60-1.99) 05/27/18 23:00 Calcium 8.8 mg/dL (8.6-10.3) 05/27/18 23:00 Phosphorus 2.7 mg/dL (2.5-5.0) 05/27/18 23:00 Magnesium 2.0 mg/dL (1.9-2.7) 05/27/18 23:00 Total Bilirubin 0.3 mg/dL (0.3-1.0) 05/27/18 23:00 AST 14 U/L (13-39) 05/27/18 23:00 ALT 11 U/L (7-52) 05/27/18 23:00 Alkaline Phosphatase 73 U/L (34-104) 05/27/18 23:00 Troponin I < 0.01 ng/mL (0.01-0.05) L 05/27/18 23:00 Total Protein 5.8 gm/dL (6.0-8.3) L 05/27/18 23:00 Albumin 3.8 gm/dL (4.2-5.5) L 05/27/18 23:00 Globulin 2.0 gm/dL 05/27/18 23:00 Albumin/Globulin Ratio 1.9 (1.0-1.8) H 05/27/18 23:00 Urine Source CLEAN C 05/28/18 20:50 Urine Color YELLOW 05/28/18 20:50 Urine Clarity CLEAR (CLEAR) 05/28/18 20:50 Urine pH 5.5 (4.6 - 8.0) 05/28/18 20:50 Ur Specific [place] 1.020 (1.005-1.030) 05/28/18 20:50 Urine Protein NEGATIVE mg/dL (NEGATIVE) 05/28/18 20:50 Urine Glucose (UA) 100 mg/dL (NEGATIVE) H 05/28/18 20:50 Urine Ketones NEGATIVE mg/dL (NEGATIVE) 05/28/18 20:50 Urine Blood NEGATIVE (NEGATIVE) 05/28/18 20:50 Urine Nitrate NEGATIVE (NEGATIVE) 05/28/18 20:50 Urine Bilirubin NEGATIVE (NEGATIVE) 05/28/18 20:50 Urine Urobilinogen 0.2 E.U./dL (0.2 - 1.0) 05/28/18 20:50 Ur Leukocyte Esterase NEGATIVE (NEGATIVE) 05/28/18 20:50 Urine RBC 0-2 /hpf (0-5) H 05/28/18 20:50 Urine WBC 0-2 /hpf (0-5) 05/28/18 20:50 Ur Epithelial Cells OCCASIONAL /lpf (FEW) 05/28/18 20:50 Urine Bacteria OCCASIONAL /hpf (NONE SEEN) 05/28/18 20:50 Urine Opiates Screen NEGATIVE (NEGATIVE) 05/28/18 20:50 Urine Methadone Screen NEGATIVE (NEGATIVE) 05/28/18 20:50 Ur Barbiturates Screen NEGATIVE (NEGATIVE) 05/28/18 20:50 Ur Tricyclics Screen NEGATIVE (NEGATIVE) 05/28/18 20:50 Ur Phencyclidine Scrn NEGATIVE (NEGATIVE) 05/28/18 20:50 Amphetamines Screen NEGATIVE (NEGATIVE) 05/28/18 20:50 U Methamphetamines Scrn NEGATIVE (NEGATIVE) 05/28/18 20:50 U Benzodiazepines Scrn POSITIVE (NEGATIVE) H 05/28/18 20:50 U Cocaine Metab Screen NEGATIVE (NEGATIVE) 05/28/18 20:50 U Cannabinoids Screen NEGATIVE (NEGATIVE) 05/28/18 20:50 - Physical Exam Vitals and I&O: Vital Signs Temp 98.6 F 05/29/18 04:00 Pulse 69 05/29/18 04:00 Resp 16 05/29/18 04:00 BP 132/58 05/29/18 04:00 Pulse Ox 95 05/29/18 04:00 Intake & Output 05/28/18 05/29/18 05/29/18 18:59 06:59 18:59 Intake Total 1000 1360 Balance 1000 1360 Weight (lbs) 52.617 kg 49.895 kg Intake: Intake, IV Amount 1000 1000 D5-0.45NS w/20 mEq KCL 1, 1000 1000 000 ml @ 75 mls/hr IV . [id number] [facility] Rx#:[id number] Oral 60 Other 300 Other: # Voids 2 # Bowel Movements 1 Weight Source Bedscale Bedscale Active Medications: Current Medications Aspirin (Aspirin Chewable) 81 mg PO DAILY [facility] Stop: 07/28/18 08:59 Last Admin: 05/29/18 08:54 Dose: 81 mg Docusate Sodium (Colace) 100 mg PO DAILY [facility] Stop: 07/28/18 08:59 Last Admin: 05/29/18 08:47 Dose: 100 mg Escitalopram Oxalate (Lexapro) 10 mg PO DAILY [facility]; Protocol Stop: 07/28/18 08:59 Last Admin: 05/29/18 08:47 Dose: 10 mg Azithromycin 500 mg/ Sodium (Chloride) 250 mls @ 250 mls/hr IV [facility] Stop: 07/27/18 20:59 Last Admin: 05/28/18 20:50 Dose: 250 mls/hr Ceftriaxone Sodium 1 gm/ (Sodium Chloride) 50 mls @ 100 mls/hr IV [facility] Stop: 07/27/18 20:59 Last Admin: 05/28/18 20:05 Dose: 100 mls/hr Potassium Chloride/Dextrose/Sod Cl (D5-0.45ns W/20 Meq Kcl) 1,000 mls @ 75 mls/ hr IV .[id number] [facility] Stop: 07/27/18 02:34 Last Admin: 05/29/18 07:09 Dose: 75 mls/hr Levetiracetam (Keppra) 500 mg PO BID [facility] Stop: 07/28/18 08:59 Last Admin: 05/29/18 08:46 Dose: 500 mg General: demented HEENT: NC/AT, PERRLA, EOMI, anicteric sclerae, throat clear Neck: Supple, No JVD, No thyromegaly, +2 carotid pulse wo bruit, No LAD Lungs: CTAB Cardiovascular: RRR, Normal S1, Normal S2, without murmur Abdomen: soft, non-tender, non-distended Extremities: clear Neurological: no change, alert - Procedures Procedures: Procedures Procedure Code Date EXCISION OF LEFT TEMPORAL ARTERY, OPEN APPROACH, DIAGNOSTIC [id number] 12/01/17 TEMPORAL ARTERY PROCEDURE 21466 12/01/17 Internal Medicine Assmt/Plan - Assessment Assessment: 1.PNEUMONIA. 2.COPD. 3.SEIZURE. 4.DEMENTIA. - Plan Plan: CONTINUE ON CURRENT MEDICATION AND DIET.
[2018-05-29] MEDS: Azithromycin 500 MG in Sodium Chloride 0.9% 250 ML IV SCH (21:38)
[2018-05-29] MEDS: cefTRIAXone 1 GM in Sodium Chloride 0.9% 50 ML IV SCH (21:39)
[2018-05-30] MEDS: D5-0.45NS w/20 mEq KCL 1,000 ML IV SCH (05:17)
[2018-05-30] MEDS: Aspirin 81mg Chewable Tab PO SCH (09:06)
[2018-05-30] MEDS: Azithromycin 500 MG in Sodium Chloride 0.9% 250 ML IV SCH (22:15)
[2018-05-30] MEDS: cefTRIAXone 1 GM in Sodium Chloride 0.9% 50 ML IV SCH (23:18)
--- NOTE | 2018-05-30 23:19 | Internal Medicine Prog Note ---
Internal Medicine Subjective - Subjective Service Date: 05/30/18 Patient seen and examined:: with staff (HE FEELS WELL) Patient is:: awake, in bed, confused Per staff patient has:: no adverse event Internal Medicine Objective - Results Result Diagrams: 05/27/18 23:00 05/27/18 23:00 Recent Labs: Laboratory Last Values WBC 7.5 Th/cmm (4.8-10.8) 05/27/18 23:00 RBC 4.19 Mil/cmm (3.80-5.80) 05/27/18 23:00 Hgb 13.3 gm/dL (12-16) 05/27/18 23:00 Hct 38.9 % (41.0-60) L 05/27/18 23:00 MCV 92.9 fl (80-99) 05/27/18 23:00 MCH 31.8 pg (27.0-31.0) H 05/27/18 23:00 MCHC Differential 34.2 pg (28.0-36.0) 05/27/18 23:00 RDW 14.3 % (11.5-20.0) 05/27/18 23:00 Plt Count 146 Th/cmm (150-400) L 05/27/18 23:00 MPV 8.6 fl 05/27/18 23:00 Neutrophils % 59.6 % (40.0-80.0) 05/27/18 23:00 Lymphocytes % 27.3 % (20.0-50.0) 05/27/18 23:00 Monocytes % 7.8 % (2.0-10.0) 05/27/18 23:00 Eosinophils % 4.4 % (0.0-5.0) 05/27/18 23:00 Basophils % 0.9 % (0.0-2.0) 05/27/18 23:00 Sodium 141 mEq/L (136-145) 05/27/18 23:00 Potassium 3.6 mEq/L (3.5-5.1) 05/27/18 23:00 Chloride 111 mEq/L (98-107) H 05/27/18 23:00 Carbon Dioxide 23.9 mEq/L (21.0-31.0) 05/27/18 23:00 Anion Gap 9.7 (7.0-16.0) 05/27/18 23:00 BUN 23 mg/dL (7-25) 05/27/18 23:00 Creatinine 1.0 mg/dL (0.7-1.3) 05/27/18 23:00 Est GFR ( Amer) TNP 05/27/18 23:00 Est GFR (Non-Af Amer) TNP 05/27/18 23:00 BUN/Creatinine Ratio 23.0 05/27/18 23:00 Glucose 158 mg/dL (70-105) H 05/27/18 23:00 Whole Bld Lactic Acid 1.49 mmol/L (0.60-1.99) 05/27/18 23:00 Calcium 8.8 mg/dL (8.6-10.3) 05/27/18 23:00 Phosphorus 2.7 mg/dL (2.5-5.0) 05/27/18 23:00 Magnesium 2.0 mg/dL (1.9-2.7) 05/27/18 23:00 Total Bilirubin 0.3 mg/dL (0.3-1.0) 05/27/18 23:00 AST 14 U/L (13-39) 05/27/18 23:00 ALT 11 U/L (7-52) 05/27/18 23:00 Alkaline Phosphatase 73 U/L (34-104) 05/27/18 23:00 Troponin I < 0.01 ng/mL (0.01-0.05) L 05/27/18 23:00 Total Protein 5.8 gm/dL (6.0-8.3) L 05/27/18 23:00 Albumin 3.8 gm/dL (4.2-5.5) L 05/27/18 23:00 Globulin 2.0 gm/dL 05/27/18 23:00 Albumin/Globulin Ratio 1.9 (1.0-1.8) H 05/27/18 23:00 Urine Source CLEAN C 05/28/18 20:50 Urine Color YELLOW 05/28/18 20:50 Urine Clarity CLEAR (CLEAR) 05/28/18 20:50 Urine pH 5.5 (4.6 - 8.0) 05/28/18 20:50 Ur Specific [place] 1.020 (1.005-1.030) 05/28/18 20:50 Urine Protein NEGATIVE mg/dL (NEGATIVE) 05/28/18 20:50 Urine Glucose (UA) 100 mg/dL (NEGATIVE) H 05/28/18 20:50 Urine Ketones NEGATIVE mg/dL (NEGATIVE) 05/28/18 20:50 Urine Blood NEGATIVE (NEGATIVE) 05/28/18 20:50 Urine Nitrate NEGATIVE (NEGATIVE) 05/28/18 20:50 Urine Bilirubin NEGATIVE (NEGATIVE) 05/28/18 20:50 Urine Urobilinogen 0.2 E.U./dL (0.2 - 1.0) 05/28/18 20:50 Ur Leukocyte Esterase NEGATIVE (NEGATIVE) 05/28/18 20:50 Urine RBC 0-2 /hpf (0-5) H 05/28/18 20:50 Urine WBC 0-2 /hpf (0-5) 05/28/18 20:50 Ur Epithelial Cells OCCASIONAL /lpf (FEW) 05/28/18 20:50 Urine Bacteria OCCASIONAL /hpf (NONE SEEN) 05/28/18 20:50 Urine Opiates Screen NEGATIVE (NEGATIVE) 05/28/18 20:50 Urine Methadone Screen NEGATIVE (NEGATIVE) 05/28/18 20:50 Ur Barbiturates Screen NEGATIVE (NEGATIVE) 05/28/18 20:50 Ur Tricyclics Screen NEGATIVE (NEGATIVE) 05/28/18 20:50 Ur Phencyclidine Scrn NEGATIVE (NEGATIVE) 05/28/18 20:50 Amphetamines Screen NEGATIVE (NEGATIVE) 05/28/18 20:50 U Methamphetamines Scrn NEGATIVE (NEGATIVE) 05/28/18 20:50 U Benzodiazepines Scrn POSITIVE (NEGATIVE) H 05/28/18 20:50 U Cocaine Metab Screen NEGATIVE (NEGATIVE) 05/28/18 20:50 U Cannabinoids Screen NEGATIVE (NEGATIVE) 05/28/18 20:50 - Physical Exam Vitals and I&O: Vital Signs Temp 98.7 F 05/30/18 16:52 Pulse 63 05/30/18 16:52 Resp 18 05/30/18 16:52 BP 152/80 05/30/18 16:52 Pulse Ox 94 05/30/18 16:52 Intake & Output 05/30/18 05/30/18 05/31/18 06:59 18:59 06:59 Intake Total 1250 900 Balance 1250 900 Weight (lbs) 49.895 kg Intake: Intake, IV Amount 1250 Azithromycin 500 mg In 250 Sodium Chloride 0.9% 250 ml @ 250 mls/hr IV [facility] Rx#:[id number] D5-0.45NS w/20 mEq KCL 1, 1000 000 ml @ 75 mls/hr IV . [id number] [facility] Rx#:[id number] Oral 900 Other: # Voids 4 # Bowel Movements 1 Weight Source Bedscale Active Medications: Current Medications Aspirin (Aspirin Chewable) 81 mg PO DAILY [facility] Stop: 07/28/18 08:59 Last Admin: 05/30/18 09:06 Dose: 81 mg Docusate Sodium (Colace) 100 mg PO DAILY [facility] Stop: 07/28/18 08:59 Last Admin: 05/30/18 09:06 Dose: 100 mg Escitalopram Oxalate (Lexapro) 10 mg PO DAILY [facility]; Protocol Stop: 07/28/18 08:59 Last Admin: 05/30/18 09:06 Dose: 10 mg Azithromycin 500 mg/ Sodium (Chloride) 250 mls @ 250 mls/hr IV [facility] Stop: 07/27/18 20:59 Last Admin: 05/30/18 22:15 Dose: 250 mls/hr Ceftriaxone Sodium 1 gm/ (Sodium Chloride) 50 mls @ 100 mls/hr IV [facility] Stop: 07/27/18 20:59 Last Admin: 05/29/18 21:39 Dose: 100 mls/hr Potassium Chloride/Dextrose/Sod Cl (D5-0.45ns W/20 Meq Kcl) 1,000 mls @ 75 mls/ hr IV .[id number] [facility] Stop: 07/27/18 02:34 Last Admin: 05/30/18 05:17 Dose: 75 mls/hr Levetiracetam (Keppra) 500 mg PO BID [facility] Stop: 07/28/18 08:59 Last Admin: 05/30/18 16:29 Dose: 500 mg General: demented HEENT: NC/AT, PERRLA, EOMI, anicteric sclerae, throat clear Neck: Supple, No JVD, No thyromegaly, +2 carotid pulse wo bruit, No LAD Lungs: CTAB Cardiovascular: RRR, Normal S1, Normal S2, without murmur Abdomen: soft, non-tender, non-distended Extremities: clear Neurological: no change, alert - Procedures Procedures: Procedures Procedure Code Date EXCISION OF LEFT TEMPORAL ARTERY, OPEN APPROACH, DIAGNOSTIC [id number] 12/01/17 TEMPORAL ARTERY PROCEDURE [id number] 12/01/17 Internal Medicine Assmt/Plan - Assessment Assessment: 1.PNEUMONIA. 2.COPD. 3.SEIZURE. 4.DEMENTIA. - Plan Plan: CONTINUE ON CURRENT MEDICATION AND DIET.
[2018-05-31] MEDS: D5-0.45NS w/20 mEq KCL 1,000 ML IV SCH (04:52)
[2018-05-31] MEDS: Aspirin 81mg Chewable Tab PO SCH (09:01)
== END 2018-05-31 18:51 | DRG 177 ==
LOC: ER 22:14 → MSI 05-28 01:15
PROVIDERS: ADMIT Family Medicine; ATTEND Family Medicine
DX: J69.0 Pneumonitis due to inhalation of food and vomit (principal); E43 Unspecified severe protein-calorie malnutrition; J44.0 Chronic obstructive pulmonary disease with (acute) lower respiratory infection; Z68.1 Body mass index [BMI] 19.9 or less, adult; I82.503 Chronic embolism and thrombosis of unspecified deep veins of lower extremity, bilateral; G40.909 Epilepsy, unspecified, not intractable, without status epilepticus; F03.90 Unspecified dementia, unspecified severity, without behavioral disturbance, psychotic disturbance, mood disturbance, and anxiety; F17.210 Nicotine dependence, cigarettes, uncomplicated; K74.60 Unspecified cirrhosis of liver; B19.20 Unspecified viral hepatitis C without hepatic coma; E86.0 Dehydration; F41.9 Anxiety disorder, unspecified; M19.90 Unspecified osteoarthritis, unspecified site
CPT/HCPCS: 36415-UA; 71045-TC; 80053-TC; 80299-90; 80307; 81001-TC; 83605; 83735-TC; 84100-TC; 84484-TC; 85025-TC; 90784; 93005; J0456; J0696; Z7610

== ENCOUNTER 2019-06-20 17:55 | Inpatient (IN) | payer MEDICAID, MEDICARE ==
[2019-06-20] MEDS ORDERED: Sodium Chloride 0.9% 1,000 ML IV ONE ×2 (18:10→18:43)
--- NOTE | 2019-06-20 18:14 | ED Physician Chart ---
ED Chief Complaint/HPI - Patient Information Date Seen:: 06/20/19 Time Seen:: 18:00 Chief Complaint:: aggressive behavior History of Present Illness:: Patient stays in a [id number]. He left the facility today and bought alcohol at a supermarket. Apparently he was yelling at others. Patient has been at the [id number] since June 2017. There is a note accompanying the patient stating when medically clear patient to be transferred to [facility]. Apparently at his current [facility] it is felt they cannot provide the supervision which the patient requires. According to the person who brought the patient here he has in the past consumed alcohol at the [facility] but has not gone outside the facility to buy it. Patient currently smokes cigarettes. Allergies:: Allergies Allergy/AdvReac Type Severity Reaction Status Date / Time No Known Allergies Allergy Verified 12/01/17 23:07 Historian:: Patient, Other Review:: Nurse's Note Reviewed, Transfer documents Reviewed ED Review of Systems - Review of Systems General/Constitutional: No fever, No chills, No weight loss, No weakness, No diaphoresis, No edema, No loss of appetite Skin: No skin lesions, No rash, No bruising Head: No headache, No light-headedness Eyes: No loss of vision, No pain, No diplopia ENT: No earache, No nasal drainage, No sore throat, No tinnitus Neck: No neck pain, No swelling, No thyromegaly, No stiffness, No mass noted Cardio Vascular: No chest pain, No palpitations, No PND, No orthopnea, No edema Pulmonary: No SOB, No cough, No sputum, No wheezing GI: No nausea, No vomiting, No diarrhea, No pain, No melena, No hematochezia, No constipation, No hematemesis Musculoskeletal: No bone or joint pain, No back pain, No muscle pain Psychiatric: Prior psych history Hematopoietic: No bruising Allergic/Immuno: No urticaria Neurological: No syncope, No focal symptoms ED Past Medical History - Past Medical History Past Medical History: CHF, Asthma/COPD, Seizures, Arthritis, Dementia, Other ( major depression; anxiety; history of urinary tract infection) Family History: Other (unavailable) Social History: Smoker, Alcohol Surgical History: other (unavailable) Psychiatricy History: Dementia Medication: Reviewed Family Medical History - Family Member Mother History Unknown: Yes Ethnicity: Non- Living Status: Hx Family Cancer: No Hx Family Coronary Artery Disease: No Hx Family Congestive Heart Failure: No Hx Family Hypertension: No Hx Family Stroke: No Hx Family Diabetes: No Hx Family Seizures: No Hx Family Dementia: No Hx Family AIDS: No Hx Family HIV: No Hx Family COPD: No Hx Family Hepatitis: No Hx Family Psychiatric Problems: No Hx Family Tuberculosis: No ED Physical Exam - Physical Examination General/Constitutional: Alert, No distress Other Gen/Cons comments:: Alert and confused; patient does not know the correct year Head: Atraumatic Eyes: Lids, conjuctiva normal, PERRL Other Skin comments:: Skin appears stated vaginal ENMT: External ears, nose nl Other ENMT comments:: Complete upper and lower dentures Neck: No nuchal rigidity Respiratory: Nl effort/Exclusion, Clear to Auscultation Cardio Vascular: RRR, No murmur, gallop, rubs, NL S1 S2 GI: No tenderness/rebounding/guarding, No organomegaly, No hernia, Normal BS's Extremities: Normal digits & nails Neuro/Psych: No focal deficits ED Labs/Radiology/EKG Results - EKG Interpretations Rate & Rhythm: normal sinus rhythm with a rate of 64 [place]: normal Comments:: Poor R-wave progression in leads V1 to V3 ED Assessment - Assessment General Assessment: at 1945 patient felt fine; abdomen was soft and nontender. The etiology of the patient's hypotension upon arrival in the emergency department is uncertain but may be due to dehydration from drinking alcohol and being outside in the warm weather. ED Septic Shock - . Is Septic Shock (SBP<90, OR Lactate>4 mmol\L) present?: No ED Reassessment (Disposition) - Reassessment Reassessment Condition:: Unchanged - Diagnosis Diagnosis:: Altered mental status; episode of hypotension; acute alcohol intoxication - Patient Disposition Admitted to:: Telemetry Spoke to:: Breanne Guillory Admitting Medical Physician:: Breanne Guillory Condition at Disposition:: Stable, Unchanged
[2019-06-20 18:36] LABS: % BASOPHILS 0.4 % (0.0-2.0); % EOSINOPHILS 4.2 % (0.0-5.0); % MONOCYTES 9.1 % (2.0-10.0); % NEUTROPHILS 54.3 % (40.0-80.0); EOSINOPHILE ABSOLUTE 0.3 Th/cmm (0.1-0.4); HEMATOCRIT 35.1 % (41.0-60); HEMOGLOBIN 11.7 gm/dL (12-16); LYMPHOCYTE ABSOLUTE 2.1 Th/cmm (1.5-3.0); MEAN CORPUSCULAR HEMOGLOBIN 30.4 pg (27.0-31.0); MEAN CORPUSCULAR HGB CONC 33.4 pg (28.0-36.0); MONOCYTE ABSOLUTE 0.6 Th/cmm (0.3-1.0); NEUTROPHILE ABSOLUTE 3.5 Th/cmm (1.8-8.0); PLATELET COUNT 156 Th/cmm (150-400); RED BLOOD COUNT 3.86 Mil/cmm (3.80-5.80); RED CELL DISTRIBUTION WIDTH 14.1 % (11.5-20.0); WHITE BLOOD COUNT 6.5 Th/cmm (4.8-10.8)
[2019-06-20 18:53] LABS: ANION GAP 11.7 (7.0-16.0); BUN - UREA NITROGEN 22 mg/dL (7-25); CALCIUM SERUM 7.5 mg/dL (8.6-10.3); CARBON DIOXIDE 23.8 mEq/L (21.0-31.0); CHLORIDE 110 mEq/L (98-107); GLUCOSE 119 mg/dL (70-105); POTASSIUM SERUM 3.5 mEq/L (3.5-5.1); SODIUM SERUM 142 mEq/L (136-145)
[2019-06-20 20:43] LABS: URINE SOURCE CLEAN C
[2019-06-20 20:47] LABS: URINE BILIRUBIN NEGATIVE (NEGATIVE); URINE BLOOD NEGATIVE (NEGATIVE); URINE GLUCOSE (UA) NEGATIVE (NEGATIVE); URINE KETONE NEGATIVE (NEGATIVE); URINE LEUKOCYTE ESTERASE NEGATIVE (NEGATIVE); URINE NITRATE NEGATIVE (NEGATIVE); URINE PROTEIN NEGATIVE (NEGATIVE); URINE UROBILINOGEN 0.2 E.U./dL (0.2 - 1.0)
[2019-06-20 20:50] LABS: URINE CLARITY CLEAR (CLEAR); URINE COLOR YELLOW; URINE MICROSCOPIC INDICATED? YES
[2019-06-20 20:55] LABS: URINE RBC NONE SEEN /hpf (0-5)
[2019-06-20 20:56] LABS: URINE BACTERIA NONE SEEN /hpf (NONE SEEN); URINE EPITHELIAL CELLS NONE SEEN /lpf (FEW); URINE WBC NONE SEEN /hpf (0-5)
[2019-06-20] MEDS ORDERED: Multivitamin Inj 10 mL Vial IV ONE (21:11)
[2019-06-20] MEDS ORDERED: Thiamine 100 mg/mL 2mL Vial ONE (21:11)
[2019-06-20] MEDS ORDERED: Magnesium Sulfate 1 gm/2 mL 2mL Vial IV ONE (21:13)
[2019-06-20] MEDS: Multivitamin Inj 10 ML, Thiamine HCL 100 MG, Magnesium Sulfate 2 GM, Folic Acid 1 MG in... IV SCH (21:20)
--- NOTE | 2019-06-21 08:37 | Diagnostic Imaging Report ---
Portable chest x-ray Time: 1818 History: Shortness of breath COMPARISON: 05/27/2018 Allowing for portable technique the heart size is normal. No focal pulmonary parenchymal processes. No hilar or mediastinal abnormalities. Impression: No acute abnormalities.
[2019-06-21] MEDS ORDERED: VTE Chemical Prophylaxis Screen/Admission MC PRN (17:25)
[2019-06-21] MEDS ORDERED: Magnesium Hydroxide (MOM) 30 mL UDC PO PRN (18:17)
--- NOTE | 2019-06-21 19:15 | History & Physical ---
ADMIT DATE: CHIEF COMPLAINT: Alcohol intoxication. HISTORY OF PRESENT ILLNESS: The patient is a 79-year-old male with long history of benign prostatic hypertrophy, COPD, degenerative joint disease, presented to the Emergency Room with alcohol intoxication, admitted to the hospital, started on banana bag. The patient denies any chest pain, shortness of breath, nausea, vomiting, fever or chills. PAST MEDICAL HISTORY: Significant for COPD, benign prostatic hypertrophy, degenerative joint disease, mild dementia. PAST SURGICAL HISTORY: No recent surgery. ALLERGIES: None. MEDICATIONS: Follow admission reconciliation. SOCIAL HISTORY: Chronic smoker, chronic alcoholic, no drugs. FAMILY HISTORY: Noncontributory. REVIEW OF SYSTEMS: RENAL SYSTEM: No history of chronic renal disorder. CARDIOVASCULAR SYSTEM: No coronary artery disease. ENDOCRINE SYSTEM: No diabetes or thyroid problem. GASTROINTESTINAL SYSTEM: No upper or lower GI bleeding. NEUROLOGICAL SYSTEM: Seizure disorder. SKELETOMUSCULAR SYSTEM: No muscular dystrophy. HEMATOLOGIC SYSTEM: No bleeding tendencies. RESPIRATORY SYSTEM: Has history of COPD. GENITOURINARY: No dysuria or hematuria. PHYSICAL EXAMINATION: GENERAL: He is awake, alert, mildly confused. VITAL SIGNS: Temperature 97.0, heart rate 68, blood pressure 173/73. HEENT: Normocephalic. Pupils are reactive to light and accommodation. Sclerae clear. NECK: Supple. Negative for lymphadenopathy, JVD or bruit. CHEST: Entry of air bilaterally mild diminished. No wheezing. HEART: S1, S2 normal. No gallop rhythm. ABDOMEN: Soft, bowel sounds positive. EXTREMITIES: No edema. NEUROLOGIC: Awake, alert, no focal muscle deficits. LABORATORY DATA: White blood 6.5, hemoglobin 11.7, hematocrit 35.1, platelet is 156. Sodium 142, potassium 3.5, BUN is 22, creatinine 1.0. Alcohol level 104. ASSESSMENT: 1. Acute alcohol intoxication. 2. Chronic obstructive pulmonary disease. 3. Hypertension. 4. Benign prostatic hypertrophy. 5. Mild anemia. 6. Dementia. PLAN: The patient admitted to the hospital under Dr. Guillory's service. Start him on banana bag, regular diet, resume his home medication. Psych evaluation ordered. The patient is a full code. JOB# [id number]
[2019-06-21] MEDS ORDERED: Non-Formulary Item 1 EA (Melatonin [Melatonin] 3 MG) PO SCH (21:00)
[2019-06-21] MEDS: Heparin Sod 5,000Units/ML 5,000 UNITS/ML VIAL SUBQ SCH (21:13)
[2019-06-21] MEDS: Multivitamin Inj 10 ML, Thiamine HCL 100 MG, Magnesium Sulfate 2 GM, Folic Acid 1 MG in... IV SCH (21:16)
[2019-06-22] MEDS ORDERED: Non-Formulary Item 1 EA (Cranberry Fruit Concentrate [Cranberry] 450 MG) PO SCH (09:00)
[2019-06-22] MEDS: Heparin Sod 5,000Units/ML 5,000 UNITS/ML VIAL SUBQ SCH ×2 (09:57→20:30)
[2019-06-22] MEDS ORDERED: Polyvinyl Alcohol Ophth Soln 15 mL Bottle EACH EYE PRN (18:31)
--- NOTE | 2019-06-22 18:31 | Internal Medicine Prog Note ---
Internal Medicine Subjective - Subjective Service Date: 06/22/19 Patient seen and examined:: without staff Patient is:: awake, verbal, ambulating, confused Per staff patient has:: no adverse event Internal Medicine Objective - Results Result Diagrams: 06/20/19 18:25 06/20/19 18:25 Recent Labs: Laboratory Last Values WBC 6.5 Th/cmm (4.8-10.8) 06/20/19 18:25 RBC 3.86 Mil/cmm (3.80-5.80) 06/20/19 18:25 Hgb 11.7 gm/dL (12-16) L 06/20/19 18:25 Hct 35.1 % (41.0-60) L 06/20/19 18:25 MCV 91.0 fl (80-99) 06/20/19 18:25 MCH 30.4 pg (27.0-31.0) 06/20/19 18: MCHC Differential 33.4 pg (28.0-36.0) 06/20/19 18:25 RDW 14.1 % (11.5-20.0) 06/20/19 18:25 Plt Count 156 Th/cmm (150-400) 06/20/19 18:25 MPV 7.3 fl 06/20/19 18:25 Neutrophils % 54.3 % (40.0-80.0) 06/20/19 18:25 Lymphocytes % 32.0 % (20.0-50.0) 06/20/19 18:25 Monocytes % 9.1 % (2.0-10.0) 06/20/19 18:25 Eosinophils % 4.2 % (0.0-5.0) 06/20/19 18:25 Basophils % 0.4 % (0.0-2.0) 06/20/19 18:25 Sodium 142 mEq/L (136-145) 06/20/19 18:25 Potassium 3.5 mEq/L (3.5-5.1) 06/20/19 18:25 Chloride 110 mEq/L (98-107) H 06/20/19 18:25 Carbon Dioxide 23.8 mEq/L (21.0-31.0) 06/20/19 18:25 Anion Gap 11.7 (7.0-16.0) 06/20/19 18:25 BUN 22 mg/dL (7-25) 06/20/19 18:25 Creatinine 1.0 mg/dL (0.7-1.3) 06/20/19 18:25 Est GFR ( Amer) TNP 06/20/19 18:25 Est GFR (Non-Af Amer) TNP 06/20/19 18:25 BUN/Creatinine Ratio 22.0 06/20/19 18:25 Glucose 119 mg/dL (70-105) H 06/20/19 18:25 Calcium 7.5 mg/dL (8.6-10.3) L 06/20/19 18:25 Magnesium 2.0 mg/dL (1.9-2.7) 06/20/19 18:25 Urine Source CLEAN C 06/20/19 20:40 Urine Color YELLOW 06/20/19 20:40 Urine Clarity CLEAR (CLEAR) 06/20/19 20:40 Urine pH 6.0 (4.6 - 8.0) 06/20/19 20:40 Ur Specific [place] 1.025 (1.005-1.030) 06/20/19 20:40 Urine Protein NEGATIVE mg/dL (NEGATIVE) 06/20/19 20:40 Urine Glucose (UA) NEGATIVE mg/dL (NEGATIVE) 06/20/19 20:40 Urine Ketones NEGATIVE mg/dL (NEGATIVE) 06/20/19 20:40 Urine Blood NEGATIVE (NEGATIVE) 06/20/19 20:40 Urine Nitrate NEGATIVE (NEGATIVE) 06/20/19 20:40 Urine Bilirubin NEGATIVE (NEGATIVE) 06/20/19 20:40 Urine Urobilinogen 0.2 E.U./dL (0.2 - 1.0) 06/20/19 20:40 Ur Leukocyte Esterase NEGATIVE (NEGATIVE) 06/20/19 20:40 Urine RBC NONE SEEN /hpf (0-5) 06/20/19 20:40 Urine WBC NONE SEEN /hpf (0-5) 06/20/19 20:40 Ur Epithelial Cells NONE SEEN /lpf (FEW) 06/20/19 20:40 Urine Bacteria NONE SEEN /hpf (NONE SEEN) 06/20/19 20:40 Ethyl Alcohol 104 mg/dL (0-10) H 06/20/19 18:25 - Physical Exam Vitals and I&O: Vital Signs Temp 98.4 F 06/22/19 16:00 Pulse 68 06/22/19 16:00 Resp 17 06/22/19 16:00 BP 175/96 06/22/19 16:00 Pulse Ox 95 06/22/19 16:00 Intake & Output 06/21/19 06/22/19 06/22/19 18:59 06:59 18:59 Intake Total 750 340 850 Output Total 100 Balance 750 240 850 Weight (lbs) 55.565 kg 56.245 kg 55.792 kg Intake: Oral 750 340 850 Output: Urine 100 Other: # Voids 4 4 5 # Bowel Movements 1 0 0 Weight Source Bedscale Bedscale Bedscale Active Medications: Current Medications Acetaminophen (Tylenol) 650 mg PO Q4H PRN PRN Reason: PAIN/FEVER Stop: 08/20/19 20:47 Docusate Sodium (Colace) 100 mg PO BID ONEYDA Stop: 08/21/19 08:59 Last Admin: 06/22/19 17:27 Dose: 100 mg Heparin Sodium (Porcine) (Heparin) 5,000 units SUBQ Q12H ONEYDA Stop: 08/20/19 20:59 Last Admin: 06/22/19 09:57 Dose: 5,000 units Multivitamins/Minerals 10 ml/Thiamine HCl 100 mg/ Magnesium Sulfate 2 gm/ Folic Acid 1 mg / Sodium Chloride 1,015.2 mls @ 100 mls/hr IV Q24H ONEYDA Stop: 08/19/19 20:59 Last Admin: 06/21/19 21:16 Dose: Not Given Magnesium Hydroxide (Milk Of Magnesia) 30 ml PO DAILY PRN PRN Reason: Constipation Stop: 08/20/19 18:16 Miscellaneous (Vte Chemical Prophylaxis Screen/ Admission) 1 ea [facility] PRN PRN PRN Reason: PROTOCOL Stop: 08/20/19 17:24 Tamsulosin HCl (Flomax) 0.4 mg PO HS ONEYDA Stop: 08/20/19 20:59 Last Admin: 06/21/19 21:13 Dose: 0.4 mg Temazepam (Restoril) 15 mg PO HS PRN; Protocol PRN Reason: Insomnia Stop: 08/20/19 21:39 Last Admin: 06/21/19 21:56 Dose: 15 mg General: alert HEENT: NC/AT, PERRLA, EOMI, anicteric sclerae, throat clear Neck: Supple, No JVD, No thyromegaly, +2 carotid pulse wo bruit, No LAD Lungs: CTAB Cardiovascular: RRR, Normal S1, Normal S2, without murmur Abdomen: soft, non-tender, non-distended - Procedures Procedures: Procedures Procedure Code Date EXCISION OF LEFT TEMPORAL ARTERY, OPEN APPROACH, DIAGNOSTIC [id number] 12/01/17 TEMPORAL ARTERY PROCEDURE 78147 12/01/17 Internal Medicine Assmt/Plan - Assessment Assessment: 1.ALCOHOL INTOXICATION. 2.COPD. 3.HTN. 4.DEMENTIA - Plan Plan: CONTINUE ON CURRENT MEDICATION AND DIET.
[2019-06-22] MEDS: Multivitamin Inj 10 ML, Thiamine HCL 100 MG, Magnesium Sulfate 2 GM, Folic Acid 1 MG in... IV SCH (20:29)
[2019-06-23] MEDS: Heparin Sod 5,000Units/ML 5,000 UNITS/ML VIAL SUBQ SCH ×2 (09:47→21:14)
--- NOTE | 2019-06-23 10:43 | Consultation ---
DATE OF CONSULTATION: 06/22/2019 CONSULTING PHYSICIAN: Dr. Zarate. REFERRING PHYSICIAN: Dr. Guillory. CHIEF COMPLAINT: Alcohol intoxication. HISTORY OF PRESENT ILLNESS: A 79-year-old male with history of alcohol, brought in here to the Emergency Room after the patient presented with alcohol intoxication. Today on [id number] evaluation, the patient reports that he has been drinking all his whole life. He reports that he is just anxious and agitated with the withdrawal symptoms right now and just refused at times to be interviewed and prefers to be interviewed at later time. He denies any suicidal or homicidal ideation. Denies any auditory or visual hallucinations. PAST MEDICAL HISTORY: COPD, BPH, DJD. PAST PSYCHIATRIC HISTORY: History of alcohol use and history of dementia. PAST SURGICAL HISTORY: No recent history. ALLERGIES TO MEDICATIONS: NKDA. CURRENT MEDICATIONS: He is on heparin, miscellaneous; Restoril as needed. LEGAL HISTORY: Denied. SOCIAL HISTORY: History of alcohol and drug use is reported. He has been drinking alcohol his whole life and he has been drinking most recently, also reporting alcohol. Denies any illicit drug use. FAMILY PSYCHIATRIC HISTORY: Noncontributory. MENTAL STATUS EXAMINATION: Slightly irritable, anxious, tremors. Denies any auditory or visual hallucinations. Denies any suicidal or homicidal ideation. Assessment of suicidal and homicidal risk is low, no ideation, no plan, no intent, no access to firearms. LABORATORY DATA: Alcohol level is 104. PRIMARY DIAGNOSIS: Alcohol dependence. SECONDARY DIAGNOSIS: Alcohol withdrawal. MEDICAL DIAGNOSES: Includes alcohol intoxication, COPD, hypertension, BPH, mild anemia. ASSESSMENT AND PLAN: The patient is a 79-year-old male who currently presents intoxicated with the alcohol for the primary team. I recommend ____ discrepancy to continue with the [facility] protocol and monitoring for withdrawal symptoms. After the withdrawal symptoms resolve, recommend to reconsult Psychiatry to further assess the patient's mental state, which is at this point being implicated by the patient's intoxicated state. Also, recommend clinical specialist medical device to continue being on board to help the patient transition to a residential treatment center versus sober living versus outpatient treatment in rehab ____ referrals as he would need them after the intoxicated state and withdrawal symptoms had completely ameliorated and improve. In the meantime, we will continue monitoring and follow alongside. I am recommending for the primary psychiatrist's treatment team to continue with the patient's detox protocol. Further assessment psychiatrically to continue assessing the patient's mood as his detox symptoms improve. [facility]# [id number]
--- NOTE | 2019-06-23 18:36 | Internal Medicine Prog Note ---
Internal Medicine Subjective - Subjective Service Date: 06/23/19 Patient seen and examined:: without staff (HE FEELS BETTER) Patient is:: awake, verbal, ambulating, confused Per staff patient has:: no adverse event Internal Medicine Objective - Results Result Diagrams: 06/20/19 18:25 06/20/19 18: Recent Labs: Laboratory Last Values WBC 6.5 Th/cmm (4.8-10.8) 06/20/19 18: RBC 3.86 Mil/cmm (3.80-5.80) 06/20/19 18: Hgb 11.7 gm/dL (12-16) L 06/20/19 18: Hct 35.1 % (41.0-60) L 06/20/19 18: MCV 91.0 fl (80-99) 06/20/19 18: MCH 30.4 pg (27.0-31.0) 06/20/19 18: MCHC Differential 33.4 pg (28.0-36.0) 06/20/19 18: RDW 14.1 % (11.5-20.0) 06/20/19 18: Plt Count 156 Th/cmm (150-400) 06/20/19 18: MPV 7.3 fl 06/20/19 18: Neutrophils % 54.3 % (40.0-80.0) 06/20/19 18: Lymphocytes % 32.0 % (20.0-50.0) 06/20/19 18: Monocytes % 9.1 % (2.0-10.0) 06/20/19 18: Eosinophils % 4.2 % (0.0-5.0) 06/20/19 18: Basophils % 0.4 % (0.0-2.0) 06/20/19 18:25 Sodium 142 mEq/L (136-145) 06/20/19 18:25 Potassium 3.5 mEq/L (3.5-5.1) 06/20/19 18:25 Chloride 110 mEq/L (98-107) H 06/20/19 18:25 Carbon Dioxide 23.8 mEq/L (21.0-31.0) 06/20/19 18:25 Anion Gap 11.7 (7.0-16.0) 06/20/19 18:25 BUN 22 mg/dL (7-25) 06/20/19 18:25 Creatinine 1.0 mg/dL (0.7-1.3) 06/20/19 18:25 Est GFR ( Amer) TNP 06/20/19 18:25 Est GFR (Non-Af Amer) TNP 06/20/19 18:25 BUN/Creatinine Ratio 22.0 06/20/19 18:25 Glucose 119 mg/dL (70-105) H 06/20/19 18:25 Calcium 7.5 mg/dL (8.6-10.3) L 06/20/19 18:25 Magnesium 2.0 mg/dL (1.9-2.7) 06/20/19 18:25 Urine Source CLEAN C 06/20/19 20:40 Urine Color YELLOW 06/20/19 20:40 Urine Clarity CLEAR (CLEAR) 06/20/19 20:40 Urine pH 6.0 (4.6 - 8.0) 06/20/19 20:40 Ur Specific [place] 1.025 (1.005-1.030) 06/20/19 20:40 Urine Protein NEGATIVE mg/dL (NEGATIVE) 06/20/19 20:40 Urine Glucose (UA) NEGATIVE mg/dL (NEGATIVE) 06/20/19 20:40 Urine Ketones NEGATIVE mg/dL (NEGATIVE) 06/20/19 20:40 Urine Blood NEGATIVE (NEGATIVE) 06/20/19 20:40 Urine Nitrate NEGATIVE (NEGATIVE) 06/20/19 20:40 Urine Bilirubin NEGATIVE (NEGATIVE) 06/20/19 20:40 Urine Urobilinogen 0.2 E.U./dL (0.2 - 1.0) 06/20/19 20:40 Ur Leukocyte Esterase NEGATIVE (NEGATIVE) 06/20/19 20:40 Urine RBC NONE SEEN /hpf (0-5) 06/20/19 20:40 Urine WBC NONE SEEN /hpf (0-5) 06/20/19 20:40 Ur Epithelial Cells NONE SEEN /lpf (FEW) 06/20/19 20:40 Urine Bacteria NONE SEEN /hpf (NONE SEEN) 06/20/19 20:40 Ethyl Alcohol 104 mg/dL (0-10) H 06/20/19 18:25 - Physical Exam Vitals and I&O: Vital Signs Temp 99.1 F 06/23/19 16:00 Pulse 77 06/23/19 16:00 Resp 18 06/23/19 17:00 BP 160/68 06/23/19 16:00 Pulse Ox 94 06/23/19 16:00 Intake & Output 06/22/19 06/23/19 06/23/19 18:59 06:59 18:59 Intake Total 850 200 950 Output Total 700 Balance 850 -500 950 Weight (lbs) 55.792 kg 55.248 kg 55.338 kg Intake: Oral 850 200 950 Output: Urine 700 Other: # Voids 5 2 5 # Bowel Movements 0 0 0 Weight Source Bedscale Bedscale Bedscale Active Medications: Current Medications Acetaminophen (Tylenol) 650 mg PO Q4H PRN PRN Reason: PAIN/FEVER Stop: 08/20/19 20:47 Artificial Tears (Artificial Tears Ophth Soln) 1 drop EACH EYE Q6HRT PRN PRN Reason: Dry Eye Stop: 08/21/19 18:30 Docusate Sodium (Colace) 100 mg PO BID ONEYDA Stop: 08/21/19 08:59 Last Admin: 06/23/19 17:29 Dose: 100 mg Heparin Sodium (Porcine) (Heparin) 5,000 units SUBQ Q12H ONEYDA Stop: 08/20/19 20:59 Last Admin: 06/23/19 09:47 Dose: 5,000 units Multivitamins/Minerals 10 ml/Thiamine HCl 100 mg/ Magnesium Sulfate 2 gm/ Folic Acid 1 mg / Sodium Chloride 1,015.2 mls @ 100 mls/hr IV Q24H ONEYDA Stop: 08/19/19 20:59 Last Admin: 06/22/19 20:29 Dose: 100 mls/hr Magnesium Hydroxide (Milk Of Magnesia) 30 ml PO DAILY PRN PRN Reason: Constipation Stop: 08/20/19 18:16 Miscellaneous (Vte Chemical Prophylaxis Screen/ Admission) 1 ea [facility] PRN PRN PRN Reason: PROTOCOL Stop: 08/20/19 17:24 Tamsulosin HCl (Flomax) 0.4 mg PO HS ONEYDA Stop: 08/20/19 20:59 Last Admin: 06/22/19 20:29 Dose: 0.4 mg Temazepam (Restoril) 15 mg PO HS PRN; Protocol PRN Reason: Insomnia Stop: 08/20/19 21:39 Last Admin: 06/22/19 20:29 Dose: 15 mg General: alert HEENT: NC/AT, PERRLA, EOMI, anicteric sclerae, throat clear Neck: Supple, No JVD, No thyromegaly, +2 carotid pulse wo bruit, No LAD Lungs: CTAB Cardiovascular: RRR, Normal S1, Normal S2, without murmur Abdomen: soft, non-tender, non-distended - Procedures Procedures: Procedures Procedure Code Date EXCISION OF LEFT TEMPORAL ARTERY, OPEN APPROACH, DIAGNOSTIC [id number] 12/01/17 TEMPORAL ARTERY PROCEDURE 23061 12/01/17 Internal Medicine Assmt/Plan - Assessment Assessment: 1.ALCOHOL INTOXICATION. 2.COPD. 3.HTN. 4.DEMENTIA - Plan Plan: CONTINUE ON CURRENT MEDICATION AND DIET.
[2019-06-23] MEDS: Multivitamin Inj 10 ML, Thiamine HCL 100 MG, Magnesium Sulfate 2 GM, Folic Acid 1 MG in... IV SCH (21:15)
--- NOTE | 2019-06-23 22:26 | Progress Notes ---
DATE: 06/23/2019 SUBJECTIVE: The patient was seen and evaluated. The patient's chard reviewed. Overnight, nursing staff reported the patient continues to have withdrawal symptoms and continues to need Ativan, benzodiazepines to help with the withdrawal symptoms. There are moments of irritability and times of confusion. Today on [id number] evaluation, the patient was easily irritable and continues to refuse the interview, easily agitated, reporting that he is willing to talk "at his own time" and disengaged. MENTAL STATUS EXAMINATION: Anxious, irritable. ASSESSMENT AND PLAN: History of alcohol dependence with a history of also dementia. His overall plan is to transition him back to [facility] [place] lock facility once the patient is stabilized with his withdrawal symptoms. We will continue monitoring while he is here in the hospital until he safely detoxes and also safely transitioned to [facility]. We will obtain more collateral baseline information. [facility]# [id number]
[2019-06-24] MEDS: Heparin Sod 5,000Units/ML 5,000 UNITS/ML VIAL SUBQ SCH ×2 (08:21→20:14)
--- NOTE | 2019-06-24 20:23 | Internal Medicine Prog Note ---
Internal Medicine Subjective - Subjective Service Date: 06/24/19 Patient seen and examined:: without staff (HE FEELS WELL) Patient is:: awake, verbal, ambulating, confused Per staff patient has:: no adverse event Internal Medicine Objective - Results Result Diagrams: 06/20/19 18:25 06/20/19 18: Recent Labs: Laboratory Last Values WBC 6.5 Th/cmm (4.8-10.8) 06/20/19 18: RBC 3.86 Mil/cmm (3.80-5.80) 06/20/19 18:25 Hgb 11.7 gm/dL (12-16) L 06/20/19 18: Hct 35.1 % (41.0-60) L 06/20/19 18: MCV 91.0 fl (80-99) 06/20/19 18: MCH 30.4 pg (27.0-31.0) 06/20/19 18: MCHC Differential 33.4 pg (28.0-36.0) 06/20/19 18: RDW 14.1 % (11.5-20.0) 06/20/19 18: Plt Count 156 Th/cmm (150-400) 06/20/19 18:25 MPV 7.3 fl 06/20/19 18: Neutrophils % 54.3 % (40.0-80.0) 06/20/19 18: Lymphocytes % 32.0 % (20.0-50.0) 06/20/19 18: Monocytes % 9.1 % (2.0-10.0) 06/20/19 18: Eosinophils % 4.2 % (0.0-5.0) 06/20/19 18: Basophils % 0.4 % (0.0-2.0) 06/20/19 18:25 Sodium 142 mEq/L (136-145) 06/20/19 18:25 Potassium 3.5 mEq/L (3.5-5.1) 06/20/19 18:25 Chloride 110 mEq/L (98-107) H 06/20/19 18:25 Carbon Dioxide 23.8 mEq/L (21.0-31.0) 06/20/19 18:25 Anion Gap 11.7 (7.0-16.0) 06/20/19 18:25 BUN 22 mg/dL (7-25) 06/20/19 18:25 Creatinine 1.0 mg/dL (0.7-1.3) 06/20/19 18:25 Est GFR ( Amer) TNP 06/20/19 18:25 Est GFR (Non-Af Amer) TNP 06/20/19 18:25 BUN/Creatinine Ratio 22.0 06/20/19 18:25 Glucose 119 mg/dL (70-105) H 06/20/19 18:25 Calcium 7.5 mg/dL (8.6-10.3) L 06/20/19 18:25 Magnesium 2.0 mg/dL (1.9-2.7) 06/20/19 18:25 Urine Source CLEAN C 06/20/19 20:40 Urine Color YELLOW 06/20/19 20:40 Urine Clarity CLEAR (CLEAR) 06/20/19 20:40 Urine pH 6.0 (4.6 - 8.0) 06/20/19 20:40 Ur Specific [place] 1.025 (1.005-1.030) 06/20/19 20:40 Urine Protein NEGATIVE mg/dL (NEGATIVE) 06/20/19 20:40 Urine Glucose (UA) NEGATIVE mg/dL (NEGATIVE) 06/20/19 20:40 Urine Ketones NEGATIVE mg/dL (NEGATIVE) 06/20/19 20:40 Urine Blood NEGATIVE (NEGATIVE) 06/20/19 20:40 Urine Nitrate NEGATIVE (NEGATIVE) 06/20/19 20:40 Urine Bilirubin NEGATIVE (NEGATIVE) 06/20/19 20:40 Urine Urobilinogen 0.2 E.U./dL (0.2 - 1.0) 06/20/19 20:40 Ur Leukocyte Esterase NEGATIVE (NEGATIVE) 06/20/19 20:40 Urine RBC NONE SEEN /hpf (0-5) 06/20/19 20:40 Urine WBC NONE SEEN /hpf (0-5) 06/20/19 20:40 Ur Epithelial Cells NONE SEEN /lpf (FEW) 06/20/19 20:40 Urine Bacteria NONE SEEN /hpf (NONE SEEN) 06/20/19 20:40 Ethyl Alcohol 104 mg/dL (0-10) H 06/20/19 18:25 - Physical Exam Vitals and I&O: Vital Signs Temp 97.0 F 06/24/19 16:06 Pulse 81 06/24/19 16:06 Resp 20 06/24/19 17:00 BP 134/71 06/24/19 16:06 Pulse Ox 95 06/24/19 16:06 Intake & Output 06/24/19 06/24/19 06/25/19 06:59 18:59 06:59 Intake Total 1300 Output Total 600 Balance 700 Weight (lbs) 54.431 kg 54.431 kg Intake: Oral 1300 Output: Urine 600 Other: # Voids 3 # Bowel Movements 0 Weight Source Bedscale Bedscale Active Medications: Current Medications Acetaminophen (Tylenol) 650 mg PO Q4H PRN PRN Reason: PAIN/FEVER Stop: 08/20/19 20:47 Artificial Tears (Artificial Tears Ophth Soln) 1 drop EACH EYE Q6HRT PRN PRN Reason: Dry Eye Stop: 08/21/19 18:30 Docusate Sodium (Colace) 100 mg PO BID ONEYDA Stop: 08/21/19 08:59 Last Admin: 06/24/19 18:02 Dose: 100 mg Heparin Sodium (Porcine) (Heparin) 5,000 units SUBQ Q12H ONEYDA Stop: 08/20/19 20:59 Last Admin: 06/24/19 20:14 Dose: 5,000 units Multivitamins/Minerals 10 ml/Thiamine HCl 100 mg/ Magnesium Sulfate 2 gm/ Folic Acid 1 mg / Sodium Chloride 1,015.2 mls @ 100 mls/hr IV Q24H ONEYDA Stop: 08/19/19 20:59 Last Admin: 06/23/19 21:15 Dose: 100 mls/hr Magnesium Hydroxide (Milk Of Magnesia) 30 ml PO DAILY PRN PRN Reason: Constipation Stop: 08/20/19 18:16 Miscellaneous (Vte Chemical Prophylaxis Screen/ Admission) 1 ea [facility] PRN PRN PRN Reason: PROTOCOL Stop: 08/20/19 17:24 Tamsulosin HCl (Flomax) 0.4 mg PO HS ONEYDA Stop: 08/20/19 20:59 Last Admin: 06/24/19 20:14 Dose: 0.4 mg Temazepam (Restoril) 15 mg PO HS PRN; Protocol PRN Reason: Insomnia Stop: 08/20/19 21:39 Last Admin: 06/22/19 20:29 Dose: 15 mg General: alert HEENT: NC/AT, PERRLA, EOMI, anicteric sclerae, throat clear Neck: Supple, No JVD, No thyromegaly, +2 carotid pulse wo bruit, No LAD Lungs: CTAB Cardiovascular: RRR, Normal S1, Normal S2, without murmur Abdomen: soft, non-tender, non-distended - Procedures Procedures: Procedures Procedure Code Date EXCISION OF LEFT TEMPORAL ARTERY, OPEN APPROACH, DIAGNOSTIC [id number] 12/01/17 TEMPORAL ARTERY PROCEDURE [id number] 12/01/17 Internal Medicine Assmt/Plan - Assessment Assessment: 1.ALCOHOL INTOXICATION. 2.COPD. 3.HTN. 4.DEMENTIA - Plan Plan: CONTINUE ON CURRENT MEDICATION AND DIET.
[2019-06-24] MEDS: Multivitamin Inj 10 ML, Thiamine HCL 100 MG, Magnesium Sulfate 2 GM, Folic Acid 1 MG in... IV SCH (22:03)
--- NOTE | 2019-06-24 23:19 | Progress Notes ---
DATE: 06/24/[address] Huggins. Case was discussed with staff of the patient, reviewed records. This is a 79-year-old male who was admitted on 06/20/2019. He is a 79-year-old with a history of alcohol, brought in here to the Emergency Room after the patient presented with alcohol intoxication. The patient reported he has been drinking all his life. He reports that he is just anxious and agitated, withdrawal symptoms. He denies any suicidal ideation or homicidal ideation. The patient with no auditory or visual hallucination with a history of COPD, benign prostatic hypertrophy, degenerative joint disease with a history of dementia. The patient has been started on a detox protocol. The patient is demented, confused, unable to make safe plan for self-care, history of benzodiazepine. Continues to have episodes of confusion and irritability. Continues to be unable to make safe plan for self-care or participate in a meaningful conversation. The patient came from [place]. The patient has been detoxing and no longer irritable. He can be discharged back to [place]. Thank you very much for allowing me to participate in the care of this most interesting gentleman. JOB# [id number]
[2019-06-25] MEDS: Polyvinyl Alcohol Ophth Soln 15 mL Bottle EACH EYE SCH ×3 (08:07→21:37)
[2019-06-25] MEDS: Heparin Sod 5,000Units/ML 5,000 UNITS/ML VIAL SUBQ SCH ×2 (08:08→21:38)
--- NOTE | 2019-06-25 14:22 | Progress Notes ---
DATE: 06/25/2019 Case was discussed with staff of the patient, reviewed records. The patient reports he has done detoxing. He is sleeping better, eating better. He looked somewhat disheveled and thin. He reported no intent with a history of dementia. He is sleeping well. He came from [place]. No side effects from the medication, no sedation, no nausea; however, he can go to [place]. If there is any acting out behavior, then he can go to [facility]. Thank you very much for allowing me to participate in the care of this most interesting gentleman. JOB# [id number]
--- NOTE | 2019-06-25 20:42 | Internal Medicine Prog Note ---
Internal Medicine Subjective - Subjective Service Date: 06/25/19 Patient seen and examined:: with staff (he feels well) Patient is:: awake, verbal, ambulating, confused Per staff patient has:: no adverse event Internal Medicine Objective - Results Result Diagrams: 06/20/19 18:25 06/20/19 18:25 Recent Labs: Laboratory Last Values WBC 6.5 Th/cmm (4.8-10.8) 06/20/19 18: RBC 3.86 Mil/cmm (3.80-5.80) 06/20/19 18:25 Hgb 11.7 gm/dL (12-16) L 06/20/19 18: Hct 35.1 % (41.0-60) L 06/20/19 18: MCV 91.0 fl (80-99) 06/20/19 18: MCH 30.4 pg (27.0-31.0) 06/20/19 18: MCHC Differential 33.4 pg (28.0-36.0) 06/20/19 18: RDW 14.1 % (11.5-20.0) 06/20/19 18: Plt Count 156 Th/cmm (150-400) 06/20/19 18:25 MPV 7.3 fl 06/20/19 18: Neutrophils % 54.3 % (40.0-80.0) 06/20/19 18: Lymphocytes % 32.0 % (20.0-50.0) 06/20/19 18: Monocytes % 9.1 % (2.0-10.0) 06/20/19 18: Eosinophils % 4.2 % (0.0-5.0) 06/20/19 18: Basophils % 0.4 % (0.0-2.0) 06/20/19 18:25 Sodium 142 mEq/L (136-145) 06/20/19 18:25 Potassium 3.5 mEq/L (3.5-5.1) 06/20/19 18:25 Chloride 110 mEq/L (98-107) H 06/20/19 18:25 Carbon Dioxide 23.8 mEq/L (21.0-31.0) 06/20/19 18:25 Anion Gap 11.7 (7.0-16.0) 06/20/19 18:25 BUN 22 mg/dL (7-25) 06/20/19 18:25 Creatinine 1.0 mg/dL (0.7-1.3) 06/20/19 18:25 Est GFR ( Amer) TNP 06/20/19 18:25 Est GFR (Non-Af Amer) TNP 06/20/19 18:25 BUN/Creatinine Ratio 22.0 06/20/19 18:25 Glucose 119 mg/dL (70-105) H 06/20/19 18:25 Calcium 7.5 mg/dL (8.6-10.3) L 06/20/19 18:25 Magnesium 2.0 mg/dL (1.9-2.7) 06/20/19 18:25 Urine Source CLEAN C 06/20/19 20:40 Urine Color YELLOW 06/20/19 20:40 Urine Clarity CLEAR (CLEAR) 06/20/19 20:40 Urine pH 6.0 (4.6 - 8.0) 06/20/19 20:40 Ur Specific Garrett 1.025 (1.005-1.030) 06/20/19 20:40 Urine Protein NEGATIVE mg/dL (NEGATIVE) 06/20/19 20:40 Urine Glucose (UA) NEGATIVE mg/dL (NEGATIVE) 06/20/19 20:40 Urine Ketones NEGATIVE mg/dL (NEGATIVE) 06/20/19 20:40 Urine Blood NEGATIVE (NEGATIVE) 06/20/19 20:40 Urine Nitrate NEGATIVE (NEGATIVE) 06/20/19 20:40 Urine Bilirubin NEGATIVE (NEGATIVE) 06/20/19 20:40 Urine Urobilinogen 0.2 E.U./dL (0.2 - 1.0) 06/20/19 20:40 Ur Leukocyte Esterase NEGATIVE (NEGATIVE) 06/20/19 20:40 Urine RBC NONE SEEN /hpf (0-5) 06/20/19 20:40 Urine WBC NONE SEEN /hpf (0-5) 06/20/19 20:40 Ur Epithelial Cells NONE SEEN /lpf (FEW) 06/20/19 20:40 Urine Bacteria NONE SEEN /hpf (NONE SEEN) 06/20/19 20:40 Ethyl Alcohol 104 mg/dL (0-10) H 06/20/19 18:25 - Physical Exam Vitals and I&O: Vital Signs Temp 98 F 06/25/19 20:00 Pulse 65 06/25/19 20:00 Resp 20 06/25/19 20:00 BP 138/71 06/25/19 20:00 Pulse Ox 94 06/25/19 20:00 Intake & Output 06/25/19 06/25/19 06/26/19 06:59 18:59 06:59 Intake Total 200 600 Balance 200 600 Weight (lbs) 52.072 kg 52.072 kg Intake: Oral 200 600 Other: # Voids 2 3 # Bowel Movements 1 Weight Source Bedscale Bedscale Active Medications: Current Medications Acetaminophen (Tylenol) 650 mg PO Q4H PRN PRN Reason: PAIN/FEVER Stop: 08/20/19 20:47 Artificial Tears (Artificial Tears Ophth Soln) 1 drop EACH EYE TID ONEYDA Stop: 08/23/19 21:44 Last Admin: 06/25/19 13:00 Dose: 1 drop Docusate Sodium (Colace) 100 mg PO BID ONEYDA Stop: 08/21/19 08:59 Last Admin: 06/25/19 16:04 Dose: 100 mg Heparin Sodium (Porcine) (Heparin) 5,000 units SUBQ Q12H ONEYDA Stop: 08/20/19 20:59 Last Admin: 06/25/19 08:08 Dose: 5,000 units Multivitamins/Minerals 10 ml/Thiamine HCl 100 mg/ Magnesium Sulfate 2 gm/ Folic Acid 1 mg / Sodium Chloride 1,015.2 mls @ 100 mls/hr IV Q24H ONEYDA Stop: 08/19/19 20:59 Last Admin: 06/24/19 22:03 Dose: Not Given Magnesium Hydroxide (Milk Of Magnesia) 30 ml PO DAILY PRN PRN Reason: Constipation Stop: 08/20/19 18:16 Miscellaneous (Vte Chemical Prophylaxis Screen/ Admission) 1 ea [facility] PRN PRN PRN Reason: PROTOCOL Stop: 08/20/19 17:24 Tamsulosin HCl (Flomax) 0.4 mg PO HS ONEYDA Stop: 08/20/19 20:59 Last Admin: 06/24/19 20:14 Dose: 0.4 mg Temazepam (Restoril) 15 mg PO HS PRN; Protocol PRN Reason: Insomnia Stop: 08/20/19 21:39 Last Admin: 06/22/19 20:29 Dose: 15 mg General: alert HEENT: NC/AT, PERRLA, EOMI, anicteric sclerae, throat clear Neck: Supple, No JVD, No thyromegaly, +2 carotid pulse wo bruit, No LAD Lungs: CTAB Cardiovascular: RRR, Normal S1, Normal S2, without murmur Abdomen: soft, non-tender, non-distended - Procedures Procedures: Procedures Procedure Code Date EXCISION OF LEFT TEMPORAL ARTERY, OPEN APPROACH, DIAGNOSTIC [id number] 12/01/17 TEMPORAL ARTERY PROCEDURE [id number] 12/01/17 Internal Medicine Assmt/Plan - Assessment Assessment: 1.ALCOHOL INTOXICATION. 2.COPD. 3.HTN. 4.DEMENTIA - Plan Plan: CONTINUE ON CURRENT MEDICATION AND DIET.
[2019-06-26] MEDS: Heparin Sod 5,000Units/ML 5,000 UNITS/ML VIAL SUBQ SCH (08:04)
[2019-06-26] MEDS: Polyvinyl Alcohol Ophth Soln 15 mL Bottle EACH EYE SCH ×3 (08:04→13:56)
[2019-06-26] MEDS: Multivitamin Inj 10 ML, Thiamine HCL 100 MG, Magnesium Sulfate 2 GM, Folic Acid 1 MG in... IV SCH (08:04)
--- NOTE | 2019-06-26 08:09 | Discharge Summary ---
DATE OF DISCHARGE: AGE: 79. SEX: Male. PHYSICIAN: Dr. Huggins. PRIMARY DIAGNOSIS: Unspecified psychosis. SECONDARY DIAGNOSIS: Alcohol withdrawal. REASON FOR HOSPITALIZATION: The patient is a 79-year-old male with history of alcohol use disorder. The patient has been drinking heavily and has been confused and agitated. HOSPITAL COURSE: The patient was confused and restless. The patient also was monitored closely for withdrawal. The patient was having insomnia and having tremors. Also was severely anxious. Dr. Guillory transferred the patient to Med/Surg unit and the patient discharged to medical floor where he can be monitored closely. PHYSICAL EXAMINATION: Showed no major medical problems. AFTER DISCHARGE PLANS: The patient discharged from the hospital to Med/Surg unit with plans for follow him up there. EXPECTED OUTCOME AFTER DISCHARGE: Fair if the patient continued to take his psychotropic medications and follow up with discharge plans. [facility]# [id number]
--- NOTE | 2019-06-26 12:34 | Progress Notes ---
DATE: SUBJECTIVE: Chart reviewed and the patient interviewed. Also, discussed the patient's condition with the staff and reviewed records and labs. The patient appears calm and cooperative. He is less agitated. The patient also is interacting more. No hallucinations or delusions. The patient basically is going through alcohol detox. TREATMENT PLAN: Continue monitoring his behavior and detoxification and continue to follow up. The patient can return to [facility] when medically stable. [facility]# [id number]
== END 2019-06-26 14:20 | DRG 315 ==
LOC: ER 17:55 → TELE 19:55
PROVIDERS: ADMIT Family Medicine; ATTEND Family Medicine
DX: I95.9 Hypotension, unspecified (principal); E44.0 Moderate protein-calorie malnutrition; Z68.1 Body mass index [BMI] 19.9 or less, adult; F10.239 Alcohol dependence with withdrawal, unspecified; F10.229 Alcohol dependence with intoxication, unspecified; J44.9 Chronic obstructive pulmonary disease, unspecified; N40.0 Benign prostatic hyperplasia without lower urinary tract symptoms; F29 Unspecified psychosis not due to a substance or known physiological condition; D64.9 Anemia, unspecified; F03.90 Unspecified dementia, unspecified severity, without behavioral disturbance, psychotic disturbance, mood disturbance, and anxiety; F17.210 Nicotine dependence, cigarettes, uncomplicated; I50.9 Heart failure, unspecified; G47.00 Insomnia, unspecified; R25.1 Tremor, unspecified; M19.90 Unspecified osteoarthritis, unspecified site; F32.9 Major depressive disorder, single episode, unspecified; Y90.9 Presence of alcohol in blood, level not specified; Z87.440 Personal history of urinary (tract) infections
CPT/HCPCS: 36415-UA; 71045-TC; 80048-TC; 80320-TC; 81001-TC; 83735-TC; 85025-TC; 93005; J1644; J3411; J3475; J7030; X6226; X6598; Z7610